=== PATIENT | female | born 1995 | race Caucasian/White ===

== ENCOUNTER → 2019-03-30 16:30 | Outpatient (CLI) | payer BC, SELFPAY ==
[2019-04-04 12:07] LABS: Chlamydia By Nucleic Acid AMP Negative (Negative)
[2019-04-04 13:43] LABS: Gonococcus By Nucleic Acid AMP Negative (Negative)
[2019-04-04 13:44] LABS: HPV Reflexed? NOT INDICATED
== END ==
PROVIDERS: PCP Obstetrics & Gynecology; Visit Provider Advanced Practice Midwife
DX: Z12.4 Encounter for screening for malignant neoplasm of cervix (principal); Z11.3 Encounter for screening for infections with a predominantly sexual mode of transmission; Z34.81 Encounter for supervision of other normal pregnancy, first trimester
CPT/HCPCS: 87491; 87591; 88175; G0145

== ENCOUNTER → 2019-04-04 15:46 | Outpatient (CLI) | payer BC, MEDICAID, SELFPAY ==
[2017-04-05 22:38] VITALS: BMI 38.5
[2019-04-04 16:59] LABS: Absolute Lymphocyte Count 1.52 X10^3/uL (0.83-4.51); Absolute Neutrophil Count 6.9 X10^3/uL (2.0-7.7); Basophil# 0.02 X10^3/uL; Basophil% 0.2 % (0-1); Eosinophil# 0.04 X10^3/uL; Eosinophils% 0.4 % (0-5); Hematocrit 41.3 % (37-47); Hemoglobin 14.2 g/dL (12.0-15.0); Lymphocyte # 1.52 X10^3/ul (4.0); Lymphocyte % 16.6 % (19-41); Mean Corp Hgb Conc 34.4 g/dL (32-36); Mean Corpuscular Hgb 32.5 pg (27.0-32.0); Mean Corpuscular Volume 94.5 fL (81-99); Mean Platelet Vol. 10.2 fl (6.2-12.0); Monocyte# 0.63 X10^3/uL; Monocyte% 6.9 % (0-10); NRBC Flagged by Analyzer 0 % (0-5); Neutrophil # 6.88 X10^3/uL (2.7-7.7); Neutrophil % 75.4 % (47-70); Platelet Count 206 K/mm3 (150-450); RBC Distribution Width CV 11.7 % (11.6-14.6); RBC Distribution Width SD 40.5 fl (35.1-43.9); Red Blood Count 4.37 M/mm3 (4.2-5.4); White Blood Count 9.1 K/mm3 (4.4-11.0)
[2019-04-04 17:08] LABS: Color, Urine Yellow (Yellow); Glucose, Dipstick Normal (Normal); Ketone-Dipstick Negative (Negative); Leukocyte Esterase-Dipstick Negative /ul (Negative); Nitrite-Dipstick Negative (Negative); Occult Blood-Urine Negative /ul (Negative); Protein-Dipstick Negative (Negative); Specific Gravity, Urine 1.025 (1.002-1.030); Urine Bilirubin Dipstick Negative (Negative); Urine Clarity Clear (Clear); Urine Urobilinogen Normal (Normal)
[2019-04-04 17:22] LABS: Amphetamine Urine VISTA NEGATIVE (<1000 ng/mL); Barbiturate Urine VISTA NEGATIVE (< 200 ng/mL); Benzodiazepine Urine VISTA NEGATIVE (< 200 ng/mL); Cocaine Urine VISTA NEGATIVE (< 300 ng/mL); Ecstacy Urine VISTA NEGATIVE (< 500 ng/mL); Methadone Urine VISTA NEGATIVE (< 300 ng/mL); PCP Urine VISTA NEGATIVE (< 25 ng/mL); THC Urine VISTA NEGATIVE (< 50 ng/mL); Vista UDS pH Range 5
[2019-04-04 17:29] LABS: Glucose Challenge Gest 1H 50g 158 mg/dL (70-140); Thyroid Stim Hormone (TSH) 1.39 uIU/mL (0.358-3.74)
[2019-04-05 10:54] LABS: HIV - WCH Non-Reactive (Nonreactive); Hepatitis B Surface Antigen Non-Reactive (Nonreactive); Hepatitis C Antibody Non-Reactive (Nonreactive); Rubella IgG 47.5 IU/mL
[2019-04-08 02:39] LABS: Prenatal RPR NONREACTIVE (NONREACTIVE)
== END ==
PROVIDERS: Visit Provider Obstetrics & Gynecology
DX: Z34.81 Encounter for supervision of other normal pregnancy, first trimester (principal)
CPT/HCPCS: 36415; 80307; 81002; 82950; 84443; 85025; 86703; 86762; 86803; 87340

== ENCOUNTER → 2019-04-07 09:52 | Outpatient (CLI) | payer BC, MEDICAID, SELFPAY ==
[2019-04-07 11:24] LABS: Glucose GTT-Gestation. Fasting 75 mg/dL (<105)
[2019-04-07 12:04] LABS: Glucose GTT-Gestational 1 Hr 145 mg/dL (<190)
[2019-04-07 13:13] LABS: Glucose GTT-Gestational 2 Hr 140 mg/dL (<165)
[2019-04-07 14:50] LABS: Glucose GTT-Gestational 3 Hr 74 L (<145)
== END ==
PROVIDERS: Referring Provider Obstetrics & Gynecology; Visit Provider Obstetrics & Gynecology
DX: O24.912 Unspecified diabetes mellitus in pregnancy, second trimester (principal); Z3A.00 Weeks of gestation of pregnancy not specified
CPT/HCPCS: 36415; 82951; 82952

== ENCOUNTER → 2019-08-24 16:18 | Outpatient (CLI) | payer BC, MEDICAID, SELFPAY ==
[2017-04-05 22:38] VITALS: BMI 38.5
[2019-08-24 17:42] LABS: Hematocrit 36.9 % (37-47); Mean Corp Hgb Conc 32.5 g/dL (32-36); Mean Corpuscular Hgb 30.7 pg (27.0-32.0); Mean Corpuscular Volume 94.4 fL (81-99); Mean Platelet Vol. 10.8 fl (6.2-12.0); Platelet Count 171 K/mm3 (150-450); RBC Distribution Width CV 12.5 % (11.6-14.6); RBC Distribution Width SD 43.4 fl (35.1-43.9); Red Blood Count 3.91 M/mm3 (4.2-5.4); White Blood Count 9.6 K/mm3 (4.4-11.0)
[2019-08-24 17:50] LABS: Glucose Challenge Gest 1H 50g 110 mg/dL (70-140)
== END ==
PROVIDERS: Visit Provider Advanced Practice Midwife
DX: Z34.83 Encounter for supervision of other normal pregnancy, third trimester (principal)
CPT/HCPCS: 36415; 82950; 85027

== ENCOUNTER → 2019-10-20 16:56 | Outpatient (CLI) | payer BC, MEDICAID, SELFPAY ==
[2017-04-05 22:38] VITALS: BMI 38.5
== END ==
PROVIDERS: Referring Provider Obstetrics & Gynecology; Visit Provider Obstetrics & Gynecology
DX: Z36.85 Encounter for antenatal screening for Streptococcus B (principal)
CPT/HCPCS: 87081

== ENCOUNTER 2019-11-08 06:57 | Inpatient (IN) | payer BC, MEDICAID, SELFPAY ==
[2017-04-05 22:38] VITALS: BMI 38.5
[2019-11-08] VITALS (21 sets, daily range): BP systolic 105–134; BP diastolic 55–77; PULSE 96–110; TEMP 36.4–37.1; O2SAT 87–99; BMI 41.1
[2019-11-08] MEDS: Lactated Ringers 1,000 ML 50 ML IV (07:43)
[2019-11-08 08:11] LABS: Absolute Lymphocyte Count 1.64 X10^3/uL (0.83-4.51); Basophil# 0.03 X10^3/uL; Basophil% 0.3 % (0-1); Eosinophil# 0.11 X10^3/uL; Eosinophils% 1.1 % (0-5); Hematocrit 36.1 % (37-47); Hemoglobin 11.7 g/dL (12.0-15.0); Lymphocyte # 1.64 X10^3/ul (4.0); Mean Corp Hgb Conc 32.4 g/dL (32-36); Mean Corpuscular Hgb 29.8 pg (27.0-32.0); Mean Corpuscular Volume 91.9 fL (81-99); Mean Platelet Vol. 10.6 fl (6.2-12.0); Monocyte# 0.89 X10^3/uL; Monocyte% 9.2 % (0-10); NRBC Flagged by Analyzer 0 % (0-5); Neutrophil # 6.95 X10^3/uL (2.7-7.7); Platelet Count 190 K/mm3 (150-450); RBC Distribution Width CV 13.3 % (11.6-14.6); RBC Distribution Width SD 44.8 fl (35.1-43.9); Red Blood Count 3.93 M/mm3 (4.2-5.4); White Blood Count 9.7 K/mm3 (4.4-11.0)
[2019-11-08] MEDS: miSOPROStol 25 MCG TABLET VAGINAL ×2 (08:30→12:48)
--- NOTE | 2019-11-08 14:56 | PCM.HP.BLA ---
History and Physical Date of Admission: 11/08/19 [facility] ANTEPARTUM RECORD - HISTORY AND PHYSICAL (11/08/2019) Name: DINAH BAKER History of This : This is a 24-year-old 2 para 1 patient who presents for induction. care has been uneventful. OB Physician: REHAN [place]'s Physician: Dr. Lori Sanabria ...................................................................... : 1995 Age: 24 Address: [address] [place] [address] Phone: H) [phone] Insurance Carrier: [employer] [facility] [id number] Emergency Contact: LAN GOLDAR [phone] ...................................................................... Final BLESSING: 11/12/19 By Ultrasound: 8 weeks 1 day PARITY: (G-Total Pregnancies P-Fullterm,Premature,Induced AB,Spont AB, Ectopics, Multiple,Living) BLESSING CONFIRMATION: By LMP: 01/31/19 Initial Exam: 11/07/19 By First Ultrasound Exam: 11/12/19 Final BLESSING: 11/12/19 OB PROBLEM LIST: 1 hour GTT = 158, NORMAL 3 hour GTT at 8 wks. ALLERGIC to AMOXICILLIN! Declines MSAFP and CF testing EPDS = 0 Possible shellfish allergy, throat sometimes itches when she eats shrimp Request NO CANCINO BULB for IOL Undecided about feeding method, may take office class ALLERGIES: Amoxicillin Hives and/or rash Shellfish Derived Itching, non-specific MEDICATIONS: 28 mg-800 mcg tablet 1 PO QD Zofran 4 mg tablet 1 q 8 hours prn nausea SOCIAL HISTORY: Smoking - Never Alcohol Use - denies drinking Diet - moderate, balanced diet Lifestyle - low stress lifestyle and Exercise - minimal Employer - [employer] Job Description - Illicit Drug Use - denies use of street drugs Sexual Activity - Residence - lives with Place of - [place]. [place] Spouse-Sig Other Name - Lan Spouse-Sig Other Occupation - [employer] Spouse-Sig Other Phone No - [phone] Children Name(s) - Mica, and two step children - Shabbir Easton PRIOR DELIVERY HISTORY DEL DATE GEST LAB WT LB WT OZ TYPE ANES LABOR TX 19 Apr 05 38 36 6 10 Vag Epidural No ANTEPARTUM FLOW CHART VISIT GE RTC FU F F OR U U DATE WK MD WKS HT PN HR M SS BP ED WT OR GL D EF ST __ ____ ___ __ __ ___ __ __ __ ___ __ __ __ ___ __ 17 Oct 38 SHM 1 37 V + + 126/68 0 222 - - 1 25 -4 10 Oct 37 SHM 1 37 + + 128/80 1+ 223 - - 02 Apr 36 CH 1 37 V + + 116/78 sl 220 tr - 1 25 hi 05 Sep 32 CH 2 32 V + + 120/80 tr 217 tr - 19 Aug 30 CH 2 30 V + + 110/80 sl 219 - - 05 Aug 28 KW 2 28 + + 118/74 217 tr tr 08 Aug 12 KW 4 24 + + 110/70 sl 213 - - 10 Jul 08 CH 4 20 V on + 98/60 0 210 11 May 16 CH 4 + O 92/60 0 210 - - 15 Apr 30 KW 4 + O 84/60 0 207 - - 16 Mar 27 4 on 122/78 209 - - ANTEPARTUM NOTE(S): Nov 04 2019: doing well, interested in induction Oct 28 2019: Oct 20 2019: GBS Today,LARC form signed,Good FM Sep 22 2019: feeling well. Sep 07 2019: feeling well. Aug 24 2019: Jul 27 2019: feeling well. Glucola given. Jun 28 2019: May 30 2019: feeling well. May 03 2019: feeling well. Still having nausea. Apr 04 2019: Daily N/V. COMPREHENSIVE ANTEPARTUM NOTE(S): Nov 04 2019: MODERATE AND MIDPOSITION. Discussed r/b/i elective IOL including tachysystole, heart rate changes, possibly requiring . Will schedule. Pt understands PRIORITY 4. Nov 04 2019: Induction is scheduled for Thursday night at 7 pm. Copy of induction paperwork faxed. LMT Oct 28 2019: Dinah reporting good FM. Occas ctx or Galindo Guajardo the past 2 weeks, not uncomfortable. No leaking fluid. No spotting. GBS negative on 10/20/19. Reporting some tingling in Right arm lasting most of the day, notes also when wakes up from sleeping. During the day, sometimes feels like she has been punched in the arm. Denies any neck issues that may contribute to this. Denies chest pain. Discussed increase in fluid when and adjusting body positions when in bed, increasing water intake -- discuss further w/Dr. Beth Reynoso. kbm Oct 28 2019: b/l UE strength 11/21. 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 Pt to monitor. GBS negative reviewed. Labor, FM precautions. Oct 25 2019: H taken to OB. tkg Oct 20 2019: GBS swab collected today. Reports +FM and feeling well. FHR is 148. Does want SVE today 08/13/high soft midposition. Discussed if not able to get cuff will need to come in weekly still for appointments. Wants to come in weekly so she doesn't have to buy a cuff. Does NOT want a cancino bulb again for IOL. Does want induced at 39 weeks though. Will do SVE and determine IOL type. Tried calling in to the office last night, but was pushing option 2 for the nurse instead of listening throughout to get the [employer] service call. Reminded on how to call in and definitely to call if needing us. Was having galindo guajardo and took a warm bath and went to bed, then they stopped. Needs to sign tubal consent at next visit. To call with s/s of labor including regular UC Q5m, ROM, bleeding or even decreased FM. To return in 1 week. .. - Oct 06 2019: Tele appt today due to Covid-19 precautions. Reports feeling well with lots of FM+. Understands Covid-19 precautions and advised when to call. Will come into the office in 2 weeks to leave GBS swab and have a nurse visit. Will sign BTL federal consent then. We are offering video/phone messages for all women in the last month if she has a BP cuff at home. If unable to get BP at home we are recommending weekly appts in the final month for surveillance. Will need to come in. Feels a lot more lower pressure, mild swelling at night in bilateral legs, more trouble feeling breathing at the end etc etc all the normal end things. Had questions on circumcision, answered all questions, but advised to talk to weaving inspector about pain control options that they offer if any. To call with decreased FM, ROM, bleeding or regular UC. Reviewed office still being open and nurse triage line with provider oncology admin 09/02. 12 minutes spent on the phone. - Sep 22 2019: FM+. FHR 138. BTL consent to be signed at next visit. Understands has to be 6wk PP to get scheduled. Nausea medication refill sent in. Has no other questions or concerns. To return in 2 weeks for routine PNV. - Sep 07 2019: (f,m*) FHR 150. FM++. Feeling well with no concerns. Reviewed 3rd trimester labs. Will return in 2 weeks for routine PNV. - Aug 24 2019: 1 Hr Glucose, CBC drawn this visit. Good FM. Aug 24 2019: Feeling well; reflux improving with small portions and lots of water'; reports active FM; denies UCs, VB, LOF; 1-hour Glucola and bloodwork drawn today; discussed warning signs, s/s PTL, safety concerns; RTO 2 weeks for PNV - KVW Jul 27 2019: Feeling well; reports active FM; denies UCs, VB, LOF; does report some reflux, discussed methods and OTC meds to relieve; Glucola given w/instructions today, to be drawn at next visit; discussed warning signs, s/s PTL; RTO 4 weeks for PNV w/CH - KVW Jun 28 2019: Reporting increased pelvic pressure. Had comprehensive US first which shows male at 48.2% tile with posterior placenta, vertex position, 4.6cm long cervix, no signs of abruption. Discussed findings with patient and . They are very excited to be having a boy. No bleeding, loss of fluids or lower back pain. Wants BTL, will sign federal consent next visit. Understands not until 6 week PP. Buying belly band to try to relieve lower belly pressure. Tylenol, warm baths and heating pad in short increments. No s/s of UTI. Will call if worsening and comfort measures not helping. To return in 4 weeks for routine PNV. - May 30 2019: (f,*) Nausea has now subsided, has not needed Zofran for over a week. Not feeling FM yet. +FHR 148. Fundus half way to umbilicus. Would like a BTL and will see Dr. Quevedo for discussion at end of second trimester. Has custody of husbands other two children and wanted BTL after first daughter. She is absolutely sure this is what she wants and understands permanence. present and talked about vasectomy, but choosing BTL for permanent control. Will return in 4 weeks for PNV with KW and Anatomy US. - May 03 2019: (f,*) 12w3d reports nausea is getting better with Zofran. Was on 8mg, then switched to 4mg. She reports taken two tabs to equal the 8mg. Let her know this was fine and educated that should be subsiding soon. Continue taking 8mg. +FHR 131. BP lower side today, but states hasn't ate much or drank much. Educated on importance of keeping hydrated. No sequelae, but instructed to call if dizzy or lightheaded. States likes midwifery care and would like to continue with keno writer/runner and Michelle. F/u in 4 weeks with KW. - Apr 04 2019: Dinah is here for her NOB visit at 8 w 2 d, she is a with an BLESSING of 11/12/2019. , Lan, and their two year old daughter are with Dinah today. Lan also has a girl (8 years old), and a son (7 years old) from a previous relationship; Dinah and Lan have custody of his older children. Dinah had a with her daughter, she states that she ran a fever, and her labor was induced. Past history updated. Delivery at [facility] with an epidural is planned. Dinah is unsure about feeding method at this time, she may want to try to breastfeed again; information about office class provided should she decide to breastfeed. Office practice patterns reviewed, including labs that will be collected today; she is aware that she will have a 1 hr GTT today and why. She tolerated the Glucola well. Emergencies/danger signs to report, round ligament pain, reporting suspected UTI, and common OTC medications approved/not approved for use during reviewed. Dinah is a nonsmoker, and denies use of drugs or ETOH. She takes an OTC vitamin and generally tolerates this well, states I sometimes forget to take it. Genetic Screening form completed, no significant history noted. MSAFP and CF testing declined, consent signed as such. Dinah reports daily N/V, she has not tried Unisom at bedtime, or Vitamin B6 50 mg twice a day, but states that she plans to do so. She also tries to eat small frequent snacks, and will work on adding some protein throughout the day, and drinks mostly water and will continue to keep doing this. Reviewed water and dietary needs during , including caloric needs, limiting weight gain to 10-15 lbs, limiting empty calories, and limiting caffeine to one serving a day. Printed guide for food safety provided with review. Physical activity, such as walking, 30 minutes 5 x/week encouraged. Lifting restrictions discussed. Dinah states that she understands all information provided during NOB visit, and has no questions following same. AW New Apr 04 2019: Feeling well with exception of consistent nausea and daily vomiting; has not tried B6 and Unisom yet, but does state she experienced this for most of her previous with which she took Zofran and Phenergen; she did not like how the Phenergen made her feel. She denies cramping, VB, LOF; dating US and NOB visit today with 1 hour glucola for BMI>38; discussed diet changes to help with nausea, warning signs; rx for Zofran given; RTO 4 weeks for PNV - KVW Mar 30 2019: Dinah is here for missed menses appt. She relates LMP of 715, +UPT today in office, approx EDC 11/07/19. She relates nausea and fatigue and would like Rx. Recommendations for . Increased po fluids as tolerated, 30 minutes of exercise 5x/wk. Educational materials are provided and reviewed. Pap and cultures will be done today. LMT REVIEW OF SYSTEMS: GENERAL - Denies fever, or chills SKIN - Denies rash, new skin lesions, or change in moles EYES - Denies blurred vision, or change in visual acuity EARS - Denies ear pain, or difficulty hearing NOSE - Denies nasal congestion, discharge, or bleeding MOUTH - Denies sore throat, or difficulty swallowing NECK - Denies pain or swelling RESPIRATORY - Denies shortness of breath, cough, wheezing CARDIOVASCULAR - Denies palpitations, chest pain, orthopnea, PND, peripheral edema, syncope or claudication GASTROINTESTINAL - Denies nausea, vomiting, diarrhea, constipation, Denies abdominal pain, melena and or bright red blood GENITOURINARY - Denies dysuria, frequency of urination, urgency, or hesitancy MUSCULOSKELETAL - Denies joint or muscle pain, or back pain NEUROLOGICAL - Denies localized numbness, weakness, or tingling PSYCHIATRIC - Denies depression, anxiety, substance abuse or suicide attempts ENDOCRINE - Denies heat or cold intolerance, weight loss or gain, increasing thirst HEMATO-IMMUNOLOGIC - Denies easy bruising, bleeding, oral ulcerations or recurrent infections GENETICS SCREENING: Age 35+ years: No Thalassemia: No Neural Tube Defect: No Down Syndrome: No JANY-SACHS: No Sickle Cell Disease: No Hemophilia: No Musc. Dystrophy: No Cystic Fibrosis: No-declines screening Luis Fernando Chorea: No Mental Retardation: No Fragile X: No Other genetic: No Other defects: No SABs/still births: No Drugs since LMP: No INFECTION HISTORY: High risk AIDS: No High risk Hepatitis: No Exposed to TB: No Exposed to Herpes: No Rash/viral illness since LMP: No History of STD: No MENSTRUAL HISTORY: *Menses Amount/Duration: 4 daysMenses Regularity: IrregularFrequency: monthly* PAST SUMMARY: PARITY: 1. Total Pregnancies............ 2 2. Full Term Pregnancies........ 1 3. Premature.................... 0 4. Abortions - Induced.......... 0 5. Abortions - Spontaneous...... 0 6. Ectopics..................... 0 7. Multiple Births.............. 0 8. Living Children.............. 1 PAST #1: Date of :.................. 04/07/17 Gestation Weeks:................ 38 Length of labor(hours):......... 36 Sex:............................ F Weight-lbs:............... 6 Weight-oz:................ 10 Type of Delivery:............... Vag Type of Anesthesia:............. Epidural Place of Delivery:.............. [facility] Treatment of Labor?:.... No Comment: IOL, FEVER PHYSICAL EXAMINATION General Appearence: 24 yo female in no acute distress Vital Signs: AF, VSS Heart: RRR without rubs or gallops Lungs: CTA x 2 Breasts: deferred Abdomen: gravid Pelvis: Cervix: 1 cm / 25% effaced Presentation: cephalic Station: -4 Fetus: Size: AGA Movement: present Heart: present Labs for : DINAH BAKER since 02/15/2019 ORDER DATEIN DESCRIPTION VALUE UNITS RANGE A+ COMMENT CULTURE, GROUP B STREPTOCOCCUS 10/20/19 NOTE Original Ordering Provider: VALDEZ Zapata GABRIEL Culture Group B Beta Streptococcus is not isolated. Reviewed by REHAN GLUCOSE CHALLENGE GEST 1H 50G 08/24/19 NOTE Original Ordering Provider: VALDEZ Cruz GLU GEST 50G 1H 110 mg/dL 70-140 Reviewed by CLIFF CBC-COMPLETE BLOOD CNT NO DIFF 08/24/19 NOTE Original Ordering Provider: VALDEZ Cruz WBC 9.6 K/mm3 4.4-11.0 RBC 3.91 M/mm3 4.2-5.4 L HGB 12.0 g/dL 12.0-15.0 HCT 36.9 % 37-47 L MCV 94.4 fL 81-99 MCH 30.7 pg 27.0-32.0 MCHC 32.5 g/dL 32-36 RDW CV 12.5 % 11.6-14.6 RDW SD 43.4 fl 35.1-43.9 PLT 171 K/mm3 150-450 MPV 10.8 fl 6.2-12.0 Reviewed by CLIFF GESTATIONAL GTT 3HR 100G 04/07/19 NOTE Original Ordering Provider: Raad Euceda GLU GTT-FASTING 75 mg/dL <105 GLUCOSE TOLERANCE TEST FOR Reference Interval GESTATIONAL DIABETES Fasting <105 mg/dL 1 hour <190 mg/dl 2 hour <165 mg/dl 3 hour <145 mg/dl GLU GTT- 1HR 145 mg/dL <190 GLU GTT- 2HR 140 mg/dL <165 GLU GTT- 3HR 74 L <145 Reviewed by JAYESH Reviewed by RAAD RPR 04/04/19 NOTE Original Ordering Provider: Raad Ecueda RPR NONREACTIVE NONREACTIVE Reviewed by JAYESH HEPATITIS C ANTIBODY 04/04/19 NOTE Original Ordering Provider: Raad Euceda HEPATITIS C AB Non-Reactive Nonreactive Non Reactive: < 0.8 Equivocal: >/= 0.8 to < 1.0 Reactive: >/= 1.0 The CDC recommends that a reactive/equivocal HCV antibody result be followed up by the HCV Nucleic Acid Amplification test (063860) Reviewed by RAAD HEPATITIS B SURFACE ANTIGEN 04/04/19 NOTE Original Ordering Provider: Raad Euceda HEPB SURFACE AG Non-Reactive Nonreactive Reviewed by RAAD HIV - [facility] 04/04/19 NOTE Original Ordering Provider: Raad Euceda HIV - [facility] Non-Reactive Nonreactive Reviewed by RAAD RUBELLA IGG 04/04/19 NOTE Original Ordering Provider: Raad Euceda RUBELLA IGG 47.5 IU/mL Antibody results Interpretation of Immune Status < 5 IU/ml Presumed Non-immune 5 - < 10 IU/ml Equivocal > or = 10 IU/ml Presumed Immune Reviewed by RAAD T AND S-NO CHARGE W/PNP 04/04/19 Reason for Type AND Screen/Red Cells: Surgery? [facility]~[address] [place], [address]~ BLOOD TYPE GEL O POSITIVE N AB SCREEN GEL NEGATIVE N Reviewed by RAAD URINALYSIS, ROUTINE (DIPSTICK) 04/04/19 NOTE Original Ordering Provider: Summer Campos-Edgardo COLOR Yellow Yellow CLARITY Clear Clear GLUCOSE, UR Normal mg/dl Normal BILIRUBIN URINE Negative mg/dL Negative KETONE UR Negative mg/dl Negative SP.GR. DIPSTX 1.025 1.002-1.030 PH UR 5.0 5.0 - 8.0 PROT DIPSTX Negative mg/dl Negative UROBILI Normal mg/dl Normal NITRITE UR Negative Negative OCCULT BLOOD-UR Negative /ul Negative LEUK ESTERASE Negative /ul Negative Reviewed by RAAD THYROID STIM HORMONE (TSH) 04/04/19 NOTE Original Ordering Provider: Raad Euceda TSH 1.39 uIU/mL 0.358-3.74 Reviewed by RAAD GLUCOSE CHALLENGE GEST 1H 50G 04/04/19 NOTE Original Ordering Provider: Raad Euceda GLU GEST 50G 1H 158 mg/dL 70-140 H Reviewed by RAAD URINE DRUG SCREEN (VISTA) 04/04/19 NOTE Original Ordering Provider: Raad Euceda TO BE CONFIRMED CONFIRMATORY TESTING FOR ALL POSITIVE URINE DRUG SCREEN RESULTS WILL ONLY BE SENT OUT UPON PHYSICIAN ORDER. VISTA Urine Drug Screen methods provide only preliminary analytical test results. A more specific alternate chemical method must be used in order to obtain a confirmed analytical result. Gas chromatography/mass spectrometery (GC/MS) is the preferred confirmatory method. Clinical consideration and professional judgement should be applied to any drug of abuse test result, particularly when preliminary positive results are used. URINE TCA TESTING MUST BE ORDERED SEPARATELY. USE TEST MNEMONIC: [facility]IST[facility] UDS PH 5 AMPHETAMINES NEGATIVE <1000 ng/mL BARBITIURATES NEGATIVE < 200 ng/mL BENZODIAZIPINE NEGATIVE < 200 ng/mL COCAINE NEGATIVE < 300 ng/mL ECSTACY NEGATIVE < 500 ng/mL METHADONE NEGATIVE < 300 ng/mL OPIATES NEGATIVE < 300 ng/mL PCP NEGATIVE < 25 ng/mL THC NEGATIVE < 50 ng/mL Reviewed by RAAD CBC W/DIFF, AUTOMATED 04/04/19 NOTE Original Ordering Provider: Raad Euceda WBC 9.1 K/mm3 4.4-11.0 RBC 4.37 M/mm3 4.2-5.4 HGB 14.2 g/dL 12.0-15.0 HCT 41.3 % 37-47 MCV 94.5 fL 81-99 MCH 32.5 pg 27.0-32.0 H MCHC 34.4 g/dL 32-36 RDW CV 11.7 % 11.6-14.6 RDW SD 40.5 fl 35.1-43.9 PLT 206 K/mm3 150-450 MPV 10.2 fl 6.2-12.0 NEUT% 75.4 % 47-70 H LY% 16.6 % 19-41 L MONO% 6.9 % 0-10 EO% 0.4 % 0-5 BASO% 0.2 % 0-1 IM GRAN % 0.500 % 0.0-0.9 IG% - Immature Granulocytes (promyelocytes, myelocytes and metamyelocytes) > 1% indicates that a LEFT SHIFT is Present. ABSOLUTE NEUT 6.9 X10 3/uL 2.0-7.7 ABSOLUTE LYMPH 1.52 X10 3/uL 0.83-4.51 NRBC, FLAGGED 0 % 0-5 Reviewed by SUMMER PAP Smear 03/30/19 PAP Test Scanned Normal Reviewed by SUMMER Impression /Plan: 39+ week intrauterine for elective induction. Preparations in progress for delivery. Essential Procedure Criteria Procedure Essential: Yes Criteria Note: On 10/04/2019 the [facility] ([facility]) Public Order signed by [facility] Director Fabiola Rodríguez M.D., regarding the Management of Non-Essential Surgeries and Procedures for the purpose of preserving Personal Protective Equipment (PPE) and critical hospital capacity and resources within [place] went into effect as of 10/05/2019 at 5:00PM. According to the [facility] Public Order: This action will remain in full force and effect until the State of Emergency declared by the Governor no longer exists or the Director of the [facility] rescinds or modifies this Order.. This [facility] order stated all non-essential or elective surgeries and procedures that utilize PPE should be delayed unless there is undue risk to the current or future health of a patient. After reviewing the aforementioned [facility] Public Order and the patients clinical case, I have determined that the scheduled procedure meets the criteria to go forward. Risk to Patient if Procedure Delayed: Threat to patient's life if surgery or procedure is not performed - Patient is .
[2019-11-08] MEDS: Oxytocin 30 units/NS 500 ml 30 UNITS/500 ML IV.SOLN IV (17:36)
[2019-11-08] MEDS: Lactated Ringers 500 ML 999 ML IV ×2 (18:25→23:18)
[2019-11-08] MEDS: fentaNYL 100 MCG/2 ML Ampul IV (22:24)
[2019-11-08] MEDS: Ondansetron 4 MG/2 ML Vial IV (22:25)
[2019-11-09] VITALS (103 sets, daily range): BP systolic 84–142; BP diastolic 43–88; PULSE 92–156; RESP 16–18; TEMP 36.2–37.4; O2SAT 83–100
[2019-11-09] MEDS: fentaNYL-bupivacaine (epidural) 100 ML BAG EPIDURAL (00:51)
[2019-11-09] MEDS: fentaNYL 100 MCG/2 ML Ampul IV (01:15)
[2019-11-09] MEDS: Lactated Ringers 1,000 ML 200 ML IV (01:58)
[2019-11-09] MEDS: Lactated Ringers 500 ML 999 ML IV ×2 (02:40→04:14)
[2019-11-09] MEDS: 0.9% Saline Lock 10 ML Syringe IV ×2 (02:43→02:44)
[2019-11-09] MEDS: Oxytocin 30 units/NS 500 ml 30 UNITS/500 ML IV.SOLN 334 UNITS IV (07:12)
--- NOTE | 2019-11-09 07:23 | PCM.OPRPT ---
Vaginal Delivery Maternal Presentation: Elective Induction Amniotic Membrane Rupture Type: Spontaneous Amniotic Fluid Description: Clear Final BLESSING: 11/12/19 Final BLESSING Source: US <20 weeks Gestational age: 39 Weeks and 4 Days Date of Procedure: 11/09/19 Pre-Operative Diagnosis: IUP Post-Operative Diagnosis: IUP Surgery/ Procedure Performed: Spontaneous Vaginal Delivery Type of Anesthesia: Epidural Description of Procedure: Spontaneous vaginal delivery of a viable male with Apgars of 9/9 from an occiput anterior presentation with clear amniotic fluid and normal three-vessel placenta. Cord around the neck x1 tight. No episiotomy or laceration. Sponges okay. Delivery physician: Carloz Godoy MD. Presentation: Vertex Placental Delivery Description: Spontaneous Placenta Disposition: [facility] Cord Vessel Description: 3 Vessels Cord Gases drawn per routine: ABG Cord Entanglement: Around neck x 1, tight Estimated Blood Loss: 250 cc A gender: Male (1 minute): 9 (5 minute): 9 Episiotomy Description: None Laceration: None Medications given after delivery: IV Pitocin Complications: None
--- NOTE | 2019-11-09 07:27 | DCINST_ITS ---
<Carloz Godoy - Last Filed: 11/09/19 07:27> Discharge Diet: No Restrictions Discharge Activity: May Shower, May Take a Tub Bath May resume sexual activity in: 4-6 weeks Additional Activity Instructions:: Nothing in the vagina for 4-6 weeks. You may return to work/school in 6 weeks. Call your doctor if you observe: Inability to urinate, Inability to have a bowel movement, Using more than one pad per hour Additional Instructions: If you experience any of the following, contact your healthcare provider. * Bleeding that soaks a pad every hour for 2 hours * Fever 100.4 or higher * Unrelieved incision or abdominal pain * Swelling, redness, discharge or bleeding from your incision or episiotomy site * Your incision begins to separate * Problems urinating (including inability to urinate or burning while urinating). * Visual changes * Severe headache * Flu-like symptoms * Pain or redness in one of both of your breasts * Pain, warmth, tenderness or swelling in your legs, especially the calf area * Frequent nausea and vomiting * Symptoms of depression or anxiety If you experience any of the following, call 911 or go to the nearest Emergency Room. * Chest pain * Problems breathing * Seizure activity * Partial or complete paralysis of a body part, slurred speech, weakness or drooping of the face, or a sudden inability to walk or hold your balance Allergies/Adverse Reactions: Allergies amoxicillin Allergy (Verified 04/05/17 22:11) Hives Medications to take at Discharge Vits [Prenatabs FA ] 1 tablet PO DAILY 10/20/16 Acetaminophen [Tylenol Extra Strength] 1,000 mg PO Q6H PRN PRN 04/05/17 Diphenhydramine HCl [Benadryl Allergy] 25 mg PO PRN PRN 04/05/17 Ibuprofen 800 mg PO TID PRN #30 tablet 04/09/17 Senna/Docusate Sodium [Senokot-S] 1 - 2 tablet PO DAILY PRN PRN #60 tablet 04/09/17 Please Follow Up With: Carloz Godoy MD - [phone] When: Call to make an appointment with your doctor in 6 weeks. Primary Care Physician: Care Physician,No Primary [Primary Care Provider] - Test Results: Test results from this visit will be discussed in further detail at your follow- up appointment, if applicable. <Jaclyn Zapata - Last Filed: 11/10/19 08:53> Additional Instructions: If you experience any of the following, contact your healthcare provider. * Bleeding that soaks a pad every hour for 2 hours * Fever 100.4 or higher * Unrelieved incision or abdominal pain * Swelling, redness, discharge or bleeding from your incision or episiotomy site * Your incision begins to separate * Problems urinating (including inability to urinate or burning while urinating). * Visual changes * Severe headache * Flu-like symptoms * Pain or redness in one of both of your breasts * Pain, warmth, tenderness or swelling in your legs, especially the calf area * Frequent nausea and vomiting * Symptoms of depression or anxiety If you experience any of the following, call 911 or go to the nearest Emergency Room. * Chest pain * Problems breathing * Seizure activity * Partial or complete paralysis of a body part, slurred speech, weakness or drooping of the face, or a sudden inability to walk or hold your balance Please Follow Up With: Jaclyn Zapata CNM When: Call to make a telehealth appointment in 2 weeks and a visit in 6 weeks Test Results: Test results from this visit will be discussed in further detail at your follow- up appointment, if applicable.
[2019-11-09] MEDS: Acetaminophen 500 MG Tablet 1000 MG PO (08:17)
[2019-11-09] MEDS: Ibuprofen 600 MG Tablet PO ×2 (16:39→23:42)
[2019-11-09] MEDS: Senna/Docusate Sodium 1 Tablet PO (23:47)
[2019-11-10 04:20] VITALS: BP 89/52; PULSE 90
[2019-11-10 04:21] VITALS: BP 90/52; PULSE 90; RESP 18; TEMP 36.4
[2019-11-10] MEDS: Ibuprofen 600 MG Tablet PO ×2 (06:34→12:16)
--- NOTE | 2019-11-10 08:53 | PCM.PN.OB ---
Subjective: Feeling well. Denies pain, cramping, and heavy bleeding. Reports passing flatus. Objective: VSS. Fundus firm, midline, u/1. Lochia rubra moderate. - Physical Exam Vitals/I&O's: Vital Signs Temp Pulse Resp BP Pulse Ox 97.5 F L 90 18 90/52 L 98 11/10/19 04:21 11/10/19 04:21 11/10/19 04:21 11/10/19 04:21 11/09/19 06:30 Oxygen Delivery Method Room Air Weight: 102.172 kg Body Mass Index (BMI) 41.1 Intake and Output for Last 24 Hours 11/08/19 11/09/19 11/10/19 23:59 23:59 23:59 Intake Total 2587.04 / 2587.04 2618.9 / 2618.9 Output Total 200 / 200 600 / 600 Balance 2387.04 / 2387.04 2018.9 / 2018.9 General: Alert, Oriented x3, Cooperative HEENT: Atraumatic, PERRLA, EOMI, Normocephalic Neck: Supple, No JVD, Negative Carotid Bruits Lungs: Clear to auscultation, Normal air movement Cardiovascular: Regular rate, No murmurs Abdomen: Bowel Sounds Present, Soft, Non Tender, Passing Flatus, - - Fundus u/1 Extremities: No edema, Capillary Refill Less than 3 Seconds Skin: No rashes, No breakdown Musculoskeletal: No Tenderness to Palpation of Joints or Extremities Neurological: Cranial nerves II-XII grossly intact Psych/Mental Status: Normal Affect, Appropriate Current Medications Acetaminophen (Tylenol) 1,000 mg PO Q8H PRN PRN PRN Reason: Pain Score 1-3/10 Last Admin: 11/09/19 08:17 Dose: 1,000 mg Documented by: Bisacodyl (Dulcolax) 10 mg RECTAL UD PRN PRN Reason: If no BM Dibucaine (Dibucaine) 1 applic TOPICAL TID PRN PRN; Protocol PRN Reason: Discomfort Diphenhydramine HCl (Benadryl) 25 mg PO TID PRN PRN PRN Reason: ITCHING Hydrocortisone (Hytone) 1 applic TOPICAL TID PRN PRN; Protocol PRN Reason: Discomfort Ibuprofen (Motrin) 600 mg PO Q6H PRN PRN PRN Reason: Pain Score 1-3/10 Last Admin: 11/10/19 06:34 Dose: 600 mg Documented by: Methylergonovine Maleate (Methergine) 0.2 mg IM X1 PRN PRN Reason: Excess bleeding/uterine atony Ondansetron HCl (Zofran) 4 mg IV Q4H PRN PRN PRN Reason: Nausea Oxycodone HCl (Oxyir) 5 - 10 mg PO Q4H PRN PRN PRN Reason: Pain Score 4-10/10 Senna/Docusate Sodium (Senokot-S, Yesica-Colace) 1 - 2 tablet PO DAILY PRN PRN PRN Reason: Constipation Last Admin: 11/09/19 23:47 Dose: 1 tablet Documented by: Simethicone (Mylicon) 80 mg PO PCHS PRN PRN Reason: Indigestion/Stomach pain Sodium Chloride () 5 - 15 ml IV UD PRN PRN Reason: SALINE FLUSH Zolpidem Tartrate (Ambien (Generic)) 5 mg PO QHS PRN PRN PRN Reason: Insomnia Medical Necessity - Tobacco Use Smoking Status: Never smoker Assessment/Plan All Active Problems Maternal fever during labor, antepartum (Acute) 37 weeks gestation of (Acute) A/P: Post vaginal delivery, day #1 Normal involution and course Dyad stable Ready to discharge today Educated on s/s of PPD and understands when to call Follow up for telehealth appt in 2 weeks and routine PP visit in 6 weeks Home today
[2019-11-10 09:14] VITALS: BP 106/60; PULSE 100
[2019-11-10 09:15] VITALS: BP 106/60; PULSE 100; RESP 18; TEMP 36.7; O2SAT 99
[2019-11-10 12:48] VITALS: RESP 18
== END 2019-11-10 12:40 | disposition home or self-care (01) | DRG 807 ==
PROVIDERS: Admitting Provider Obstetrics & Gynecology; Visit Provider Obstetrics & Gynecology
DX: O99.214 Obesity complicating childbirth (principal); E66.01 Morbid (severe) obesity due to excess calories; O69.1XX0 Labor and delivery complicated by cord around neck, with compression, not applicable or unspecified; Z88.0 Allergy status to penicillin; Z3A.39 39 weeks gestation of pregnancy; Z37.0 Single live birth
CPT/HCPCS: 59025; 59050; 85025; 86850; 86900; 86901; 99218; J7120; A4216; G0378; J2405

== ENCOUNTER 2019-12-28 05:58 | Day surgery (SDC) | payer BC, MEDICAID, SELFPAY ==
[2019-11-08 07:08] VITALS: BMI 41.1
[2019-12-26 16:45] LABS: International Normalized Ratio 1.1; Prothrombin Time (Protime)PT. 13.3 SECONDS (11.7-14.9)
[2019-12-26 16:46] LABS: Partial Thromboplast Time 33.4 Seconds (24.1-36.2)
[2019-12-26 16:54] LABS: Hematocrit 45.1 % (37-47); Internal QC Validated? YES +Cl - CLEAR BKGD; Mean Corpuscular Hgb 29.3 pg (27.0-32.0); Mean Corpuscular Volume 94.4 fL (81-99); Mean Platelet Vol. 11.2 fl (6.2-12.0); Platelet Count 242 K/mm3 (150-450); Pregnancy, Serum, hCG Quali. NEGATIVE Negative; RBC Distribution Width CV 13.8 % (11.6-14.6); RBC Distribution Width SD 47.8 fl (35.1-43.9); Red Blood Count 4.78 M/mm3 (4.2-5.4); White Blood Count 6.9 K/mm3 (4.4-11.0)
--- NOTE | 2019-12-27 22:22 | HP.PCM_ITS ---
History and Physical Date of Admission: 12/28/19 Surgical History and Physical Dinah Arauz, a 24 year old female 2 0 0 0 2, presents for L/S Bilateral Salpingectomy on December 28, 2019 at 7:30. -- Desires Permanent Sterilization -- She has considered this form of sterilization for quite some time. MEDICATIONS HISTORY: ALLERGIES: Amoxicillin, Hives and/or rash, Shellfish Derived, Itching, non- specific, Shellfish Derived and Hives and/or rash Infections - Chicken pox vaccine Illnesses - none Accidents - L hip injury - fell from horse, 2011 and sees chiropractor Hospitalizations - see surgery and Childbirth Review of Systems: GENERAL - Denies fever, or chills SKIN - Denies skin changes EYES - wears glasses EARS - Denies difficulty hearing NOSE - Denies nasal congestion or bleeding MOUTH - Denies sore throat or difficulty swallowing NECK - Denies pain or swelling RESPIRATORY - Denies shortness of breath or wheezing CARDIOVASCULAR - Denies palpitations or chest pain GASTROINTESTINAL - Denies nausea, vomiting, diarrhea, constipation GENITOURINARY - Denies dysuria, frequency of urination, incontinence of urine MUSCULOSKELETAL - Denies joint or muscle pain NEUROLOGICAL - Denies localized numbness or weakness PSYCHIATRIC - Denies depression or anxiety ENDOCRINE - Denies heat or cold intolerance, weight loss or gain HEMATO-IMMUNOLOGIC - Denies excessive bleeding with cuts SOCIAL HISTORY: Alcohol Use - denies drinking Smoking - Never Diet - moderate, balanced diet Lifestyle - low stress lifestyle and Exercise - minimal Seat Belt Use - most of the time Employer - [employer] Illicit Drug Use - denies use of street drugs Sexual Activity - Residence - lives with Place of - [facility] Spouse-Sig Other Name - Lan Spouse-Sig Other Occupation - [employer] Spouse-Sig Other Phone No - [phone] Children Name(s) - Mica, and two step children - Shabbir [place] Control - Lap BS scheduled 12/28/19 FAMILY HISTORY: nc MENSTRUAL HISTORY: LMP Known?- 11/09/19Amount/Duration - 4 days, Regularity - Irregular, Frequency - monthly days, LMP - 01/31/19 PAST PREGNANCIES: Total Pregnancies - 2; Full Term Pregnancies - 2; Premature - 0; Abortions, Induced - 0; Abortions, Spontaneous - 0; Ectopics - 0; Multiple Births - 0; Living Children - 2 SURGICAL HISTORY: 1. Rt ankle surgery 2013 PHYSICAL EXAM BP- 126/74 Sitting, R Forearm Temp- 98.1 Taken Orally Weight- 195.28168 lbs Height- 62 inch BMI:35.89 CONSTITUTIONAL - NAD, well nourished, and well developed SKIN - No rash, lesions, or ulcers HEENT - Normocephalic, PERRLA, EOMI NECK - No nodes, no nuchal rigidity and thyroid normal size and texture LUNGS - CTA x2 without wheezes, crackles or rales CARDIAC - Regular rate and rhythm without rubs, murmurs, or gallops BREAST - No dominant masses, no tenderness, no axillary adenopathy, no nipple discharge, no skin changes ABDOMEN - Without hepatosplenomegaly, distention, masses, rebound, or guarding; normal bowel sounds; no hernias EXTREMITIES - No edema or calf tenderness NEUROLOGICAL - normal gait, normal balance, normal motor PSYCHIATRIC - A and O to time, place, person, mood and affect PAP SMEAR - done and GC and Chlamydia done External Genital Vagina - non-tender without lesions Urethra/Urethral Meatus - non-tender Bladder - non-tender Vagina - vaginal hull are pink and moist without loss of rugae and no evidence of atropy Cervix - without cervical motion tenderness and has normal size and features without evident lesions Uterus - mobile, no tenderness, uterus 6 wks Adnexa - clear without masses or tenderness ASSESSMENT/PLAN: Desires permanent sterilization. Plan to proceed with a la paroscopic bilateral salpingectomy. Discussed risk, benefit, alternatives and all questions were answered. We also discussed the permanent nature of the procedure, the failure rate of 1 to 2%. And the other availability of other nonpermanent control options. Procedure Criteria Procedure Type: Elective COVID Risk Discussion: The surgeon/proceduralist and patient have discussed in detail the risk of exposure to and/or potential harm posed by the COVID-19 virus with having a surgery/procedure at this time versus the risk of delaying the surgery/procedure. It is not possible to know either the risk of delaying the surgery or procedure or chance of getting an infection with perfect accuracy, bu t a joint decision was made between the patient and the surgeon/proceduralist to proceed at this time with the scheduled surgery/procedure as indicated on the consent form.
[2019-12-28 06:45] LABS: Internal QC Validated? YES +Cl - CLEAR BKGD; Pregnancy, Urine Negative Negative
[2019-12-28 06:48] VITALS: BP 111/65; PULSE 85; RESP 15; TEMP 36.8; O2SAT 98; BMI 35.6
[2019-12-28] MEDS: Lactated Ringers 1,000 ML 100 ML IV ×2 (06:53→08:51)
--- NOTE | 2019-12-28 07:29 | PCM.OPRPT ---
Report of Operation Date of Procedure: 12/28/19 Pre-Operative Diagnosis: Desires Permanent Sterilization Post-Operative Diagnosis: Desires Permanent Sterilization Surgery/Procedure Performed:: Laparoscopic Bilateral Salpingectomy Description of Surgical Findings:: 8 cm uterus with normal-appearing fallopian tubes and ovaries. Normal upper abdomen. Type of Anesthesia:: General - Endotracheal Anesthesiologist: Jose Nagy Specimen's removed: Bilateral fallopian tubes Estimated Blood Loss (mL): Minimal Fluids Replaced: Crystalloid Description of Procedure: Surgeon: Carloz Godoy MD, FACOG Indications: This is a 24 year old patient who has the above diagnosis. She has considered sterilization for quite some time. She is aware of the permanent nature of the procedure, the failure rate of 1-2%, and the availability of other nonpermanent control options. All questions were answered to consider the patient well-informed. Procedure: The patient was taken to the operating room where after induction of general anesthesia, she was placed in the dorsolithotomy position and prepped and draped in the usual sterile fashion. The bladder was drained of approximately 50 cc of clear yellow urine with a catheter. Anterior cervix was grasped with the tenaculum. Conn cannula was placed and attention was turned toward the laparoscopic portion of the procedure. Approximately 20 cc of half percent ropivacaine was injected subumbilically, suprapubically and midway between. A 5 mm bladeless trocar was placed subumbilically and intraperitoneal placement confirmed. After CO2 insufflation was complete, a 5 mm bladeless trocar was introduced suprapubically. The above findings were noted. A 5 mm bladeless port was then placed midway between these 2 ports for tubal manipulation. Each fallopian tube was identified to its fimbriated end and an Enseal device was used to divide the mesosalpinx to the uterus. Tubes were removed through the lower 5 mm port. The peritoneal cavity and upper abdomen were examined and noted to be normal. Photographs were taken. Laparoscopic instruments with as much CO2 gas as possible were removed and incisions were closed with interrupted 4-0 Monocryl suture. Steri-Strips placed across the incision. Vaginal instruments were removed. The patient tolerated the procedure well was taken to recovery room in satisfactory condition and sponge instrument and needle counts were all reportedly correct. Estimated blood loss for the case was minimal. There were no apparent complications of the surgery. Specimens to pathology was bilateral tubes Grafts/Implants Used: None - Complications None - Admit VTE Documentation VTE Present on Admission: Yes VTE Mechan Device Prophylaxis: SCD's
[2019-12-28] MEDS: Ropivacaine 0.5% 30 ML Vial (07:30)
--- NOTE | 2019-12-28 07:30 | FALS_PTH ---
PATIENT: VANESA BAKER LOC: [facility] – [place] U#:[id number] AGE/SX: 24/F ROOM: RE12/28/[address]: Dr. Carloz Godoy MD : 1995 BED: DIS: 12/28/2019 SPEC #: [id number] RECD: 12/28/19 10:14 STATUS: FELA ALLISON #: [id number] EUGENE: 12/28/19 07:[address]: Carloz Godoy DEPT: SURGICAL PATHOLOGY RECD BY: Cristin Zeng ENTERED: 12/28/19 10:31 SP TYPE: FALL TUBES OTHR DR: No Primary Care Phys Tissues: Fallopian tube Procedures: Surgery Specimen Level II HEADER OPERATION: Laparoscopic salpingectomy, bilateral PRE-OP DIAGNOSIS: Sterilization TISSUE SUBMITTED: Bilateral fallopian tubes MICROSCOPIC DIAGNOSIS Bilateral fallopian tubes, salpingectomy: Bilateral fallopian tubes including fimbrial ends, no pathologic diagnosis. SJ:aric 12/29/19 MICROSCOPIC DESCRIPTION Slides are reviewed. GROSS DESCRIPTION Received in fixative is one container labeled with the patient's name and designated bilateral fallopian tubes. The specimen consists of bilateral fallopian tubes including fimbrial ends measuring 6 cm in length and 0.5 cm in diameter and 7 cm in length and 0.5 cm in diameter. The fallopian tubes are not identified as right or left. Sections reveal unremarkable cut surfaces. Gel Coat Sprayer sections are submitted in two cassettes with each cassette containing one fallopian tube. / VICKEY:aric 12/28/19 TC:4 CPT: 83956 x2
--- NOTE | 2019-12-28 07:32 | DCINST_ITS ---
Discharge Diet: No Restrictions - Increase fluid intake for the next 48 hours. Discharge Activity: Return to Normal Activity, May Drive - when you are no longer taking pain/narcotic medicines., May Shower, May Take a Tub Bath Additional Activity Instructions:: Ambulate often the next week after surgery. Nothing in the vagina for 5 days. Call your doctor if your incision/area has: Continuous Slow Oozing, Sudden Increased Bleeding, Increased Pain/ Swelling, Increased Redness, Foul Smelling Discharge Call your doctor if you observe: Fever of 101 or Higher, Inability to urinate, Inability to have a bowel movement, Using more than one pad per hour Allergies/Adverse Reactions: Allergies amoxicillin Allergy (Verified 12/28/19 06:47) Hives shellfish derived Allergy (Verified 12/28/19 06:47) Hives Medications to take at Discharge Vits [Prenatabs FA ] 1 tablet PO DAILY 10/20/16 Acetaminophen [Tylenol Extra Strength] 1,000 mg PO Q6H PRN PRN 04/05/17 Diphenhydramine HCl [Benadryl Allergy] 25 mg PO PRN PRN 04/05/17 Oxycodone [Oxyir] 5 mg PO Q6H PRN PRN 7 Days #7 tablet 12/28/19 The following prescriptions were given: Oxycodone [Oxyir] 5 mg PO Q6H PRN PRN 7 Days #7 tablet PRN Reason: Pain Score 6-10/10 Transmission Status: Sent to [facility]30 Primary Care Physician: Care Physician,No Primary [Primary Care Provider] - Test Results: Test results from this visit will be discussed in further detail at your follow- up appointment, if applicable. Please Follow Up With: Carloz Godoy MD - [phone] When: 2 to 3 weeks
[2019-12-28 08:27] VITALS: BP 111/65; BP 99/67; PULSE 69; RESP 20; TEMP 36.6; O2SAT 95
[2019-12-28 08:30] VITALS: BP 107/94; BP 111/65; PULSE 74; RESP 16; O2SAT 95
[2019-12-28 08:45] VITALS: BP 106/75; BP 111/65; PULSE 69; RESP 16; O2SAT 94
[2019-12-28 08:53] VITALS: BP 102/68; BP 111/65; PULSE 65; RESP 16; TEMP 36.4; O2SAT 95
[2019-12-28 09:58] VITALS: BP 111/65; BP 118/55; PULSE 57; RESP 16; TEMP 36.4; O2SAT 95
--- OUTSIDE RECORDS SUMMARY | 2020-05-06 10:42 | XMS RPT_ITS | CCD ---
:1995 External Reference #:[id number] Author Organization [facility] [employer] Care Team Providers Name Role Phone Unavailable Unavailable Unavailable Results Result Name Value Range Unit Interpretation Flag Date Location progress on 2019-05 PROGRESS HNO ID: [id number] Normal 06-07-2019 [facility] Author: Kiara yoon ([id number]) Service: ? Author Type: Nurse Practitioner Type: Progress Notes Filed: 06/07/2019 9:04 AM Note Text: Subjective The history is provided by the patient and a relative. No ghada arce molding line assistant was used. HPI Vanesa Baker is a 23 year old female who presents today for CC of sore throat, cough congestion, bilateral ear pressure, green nasal drainage, that started about 2 weeks ago and won't go away. She has used hot tea, honey, with no relief. She is 17 weeks . De nies any bleeding or contractions. 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 BP 110/80 Pulse 114 Temp 37.1 ?C (98.7 ?F) (Tympanic) Resp 18 Wt 95.2 kg (209 lb 12.8 oz) SpO2 97% Social History Tobacco Use - Smoking status: Former Smoker - Smokeless tobacco: Never Used - Tobacco comment: quit at age 17 Substance Use Topics - Alcohol use: No - Drug use: No PAST MEDICAL HISTORY Diagnosis Date - NEGATIVE MEDICAL HISTORY I have confirmed and edited as necessary, the [place] Review of Systems Constitutional: Negative for chills and fever. HENT: Positive for sore throat. Negative for congestion, ear pain and sinus pain. Respiratory: Negative for cough, sputum production, shortnes s of breath and wheezing. Cardiovascular: Negative for chest pain. Musculoskeletal: Negative for myalgias. Neurological: Negative for headaches. Objective Physical Exam Constitutional: She is well-developed, well-nourished, and i n no distress. HENT: Head: Normocephalic and atraumatic. Right Ear: Tympanic membrane, external ear and ear canal nor mal. Left Ear: Tympanic membrane and ear canal normal. Nose: Mucosal edema and rhinorrhea present. Right sinus exhi bits maxillary sinus tenderness and frontal sinus tenderness. Left sinus ex hibits maxillary sinus tenderness and frontal sinus tenderness. Mouth/Throat: Uvula is midline and mucous membranes are norm al. Posterior oropharyngeal edema and posterior oropharyngeal erythema pre sent. Cardiovascular: Normal rate, regular rhythm and normal heart sounds. Pulmonary/Chest: Effort normal and breath sounds normal. No respiratory distress. She has no decreased breath sounds. She has no whe ezes. She has no rhonchi. She has no rales. She exhibits no tenderness. Lymphadenopathy: Head (right side): No submental, no submandibular and no ton sillar adenopathy present. Head (left side): No submental, no submandibular and no tons illar adenopathy present. She has no cervical adenopathy. Neurological: She is alert. Skin: Skin is warm and dry. Psychiatric: Affect normal. Nursing note and vitals reviewed. ASSESSMENT/PLAN: 1. Acute non-recurrent frontal sinusitis - ICD9: 461.1, ICD1 0: J01.10 (primary diagnosis) - Will begin treatment with as per antibiotic as written, se e orders - The patient should also be given behind the counter Pseudo ephedrine for the first 5-7 days of treatment. - Supportive care with plenty of fluids, rest, and tylenol a s needed - Follow up in one week if symptoms persist or worsen. 2. Sore throat - ICD9: 462, ICD10: J02.9 - suspect drainage - Rapid Strep negative in the office today - Discussed supportive care treatment with fluids, rest and analgesia. - The patient may also use warm salt water gargles, throat l ozenges and/or OTC throat spray as needed. - The patient should follow up in one week if symptoms persi st or worsen - Call back if drooling, increased temperature, symptoms of dehydration and/or still sick in one week - RAPID STREP TEST B/O - GROUP A STREPTOCOCCUS BY PCR * Seek medical care immediately, call 911, go to ER if you h ave chest pain, difficulty breathing, shortness of breath, inability t o swallow. Diagnosis and treatment plan were discussed and questions we re answered to the patient's satisfaction. Pt acknowledged understanding of concepts and follow up plan. Specific signs and symptoms that would indicate the need for higher level of care were discussed in detail warranting prompt ER evalua tion. Kiara Molina APRN.CNP group a strep by pcr on 2019-06-07 GAS Specimen Source Throat Swab Normal 06-07-20 [facility] ([id number]) Comment: Performed By: #### GASPCR ## ## [facility] [address] [place] [id number] Group A Strep PCR Negative for Group A Normal 1 08-07-2018 [facility] Streptococcus by PCR. [place] ([id number]) Comment: Result Comment: This test wa s developed and its performance characteristics determined by [facility]'s [facility] [place] ([facility]). It has not been cleared or a pproved by the FDA. [facility] is regulated under CLIA as qualified to perform high complexity testing. This test is used for clinical purposes. It should not be regarded as inv estigational or for research . Performed By: #### GASPCR ## ## [facility] [address] [place] [address] cnov on 2019-06-07 CNOV Office Visit ([facility]) Normal 06-07-20 [place] VANESA Carballo ([id number]) 1995 F [place] Date Time Provider Department ([id number]) 06/07/19 8:45 AM KIARA MOLINA WSJ LUIS During your visit today, we recorded the following informati on about you: Temperature Pulse Respiration Blood pressure 98.7 degrees 114/minute 18/minute 110/80 Weight 95.2 kg Kiara Molina APRN.POKER PROP PLAYER 06/07/2019 9:04 AM Signed Subjective The history is provided by the patient a nd a relative. No boarder steam was used. HPI Vanesa Baker is a 23 year old female who presents tod for CC of sore throat, cough congestion, bilateral ear pressure, gree n nasal drainage, that started about 2 weeks ago and won't go a way. She has used hot tea, honey, with no relief. She is 17 weeks . Denies any bleeding or contractions. 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 BP 110/80 Pulse 114 Temp 37.1 ?C (98.7 ?F) (Tympanic) Resp 18 Wt 95.2 kg (209 lb 12.8 oz) SpO2 97% Social History Tobacco Use - Smoking status: Former Smoker - Smokeless tobacco: Never Used - Tobacco comment: quit at age 17 Substance Use Topics - Alcohol use: No - Drug use: No PAST MEDICAL HISTORY Diagnosis Date - NEGATIVE MEDICAL HISTORY I have confirmed and edited as necessary, the [place] Review of Systems Constitutional: Negative for chills and fever. HENT: Positive for sore throat. Negative for congestion, e ar pain and sinus pain. Respiratory: Negative for cough, sputum production, shortn ess of breath and wheezing. Cardiovascular: Negative for chest pain. Musculoskeletal: Negative for myalgias. Neurological: Negative for headaches. Objective Physical Exam Constitutional: She is well-developed, well-nourished, and i n no distress. HENT: Head: Normocephalic and atraumatic. Right Ear: Tympanic membrane, external ear and ear canal nor mal. Left Ear: Tympanic membrane and ear canal normal. Nose: Mucosal edema and rhinorrhea present. Right sinus exhi bits maxillary sinus tenderness and frontal sinus tenderness. Left si nus exhibits maxillary sinus tenderness and frontal sinus tenderness. Mouth/Throat: Uvula is midline and mucous membranes are norm al. Posterior oropharyngeal edema and posterior oropharyngeal erythema pre sent. Cardiovascular: Normal rate, regular rhythm and normal heart sounds. Pulmonary/Chest: Effort normal and breath sounds normal. No respiratory distress. She has no decreased breath sounds. She has no wheezes. She has no rhonchi. She has no rales. She exhibits no tenderness. Lymphadenopathy: Head (right side): No submental, no submandibular and no ton sillar adenopathy present. Head (left side): No submental, no submandibular and no tons illar adenopathy present. She has no cervical adenopathy. Neurological: She is alert. Skin: Skin is warm and dry. Psychiatric: Affect normal. Nursing note and vitals reviewed. ASSESSMENT/PLAN: 1. Acute non-recurrent frontal sinusitis - ICD9: 461.1, ICD10: J01.10 (primary diagnosis) - Will begin treatment with as per antibiotic as written, se e orders - The patient should also be given behind the co unter Pseudoephedrine for the first 5-7 days of treatment. - Supportive care with plenty of fluids, rest, and tylenol a s needed - Follow up in one week if symptoms persist or worsen. 2. Sore throat - ICD9: 462, ICD10: J02.9 - suspect drainage - Rapid Strep negative in the office today - Discussed supportive care treatment with fluids, rest and analgesia. - The patient may also use warm salt noel er gargles, throat lozenges and/or OTC throat spray as needed. - The patient should follow up in one week if symptoms persi st or worsen - Call back if drooling, increased tempe rature, symptoms of dehydration and/or still sick in one week - RAPID STREP TEST B/O - GROUP A STREPTOCOCCUS BY PCR * Seek medical care immediately, call 911, go to ER if you have chest pain, difficulty breathing, shortness of breath, inability to swal low. Diagnosis and treatment plan were discus sed and questions were answered to the patient's satisfaction. Pt a cknowledged understanding of concepts and follow up plan. Specific signs and symptoms that would indicate the pr ed for higher level of care were discussed in detail warranting prompt ER evaluatio n. Kiara Molina APRN.ELLIE Molina APRN.CNP 06/07/2019 9:00 AM Signed ASSESSMENT/PLAN: 1. Acute non-recurrent frontal sinusitis - ICD9: 461.1, ICD10: J01.10 (primary diagnosis) - Will begin treatment with as per antibiotic as written, se e orders - The patient should also be given behind the co unter Pseudoephedrine for the first 5-7 days of treatment. - Supportive care with plenty of fluids, rest, and tylenol a s needed - Follow up in one week if symptoms persist or worsen. 2. Sore throat - ICD9: 462, ICD10: J02.9 - suspect drainage - Rapid Strep negative in the office today - Discussed supportive care treatment with fluids, rest and analgesia. - The patient may also use warm salt noel er gargles, throat lozenges and/or OTC throat spray as needed. - The patient should follow up in one week if symptoms persi st or worsen - Call back if drooling, increased tempe rature, symptoms of dehydration and/or still sick in one week - RAPID STREP TEST B/O - GROUP A STREPTOCOCCUS BY PCR * Seek medical care immediately, call 911, go to ER if you have chest pain, difficulty breathing, shortness of breath, inability to swal low. Referring Provider: SELF [200] Allergies As of Date: 06/07/2019 Noted Allergy Reaction AMOXICILLIN 11/27/2015 2 - Rash Date Reviewed: 06/07/2019 Reviewed by: Kiara Molina - Fully Assessed Reason for Visit: Sore Throat [200] Cmt: ST, JAMIL, bilateral ear pian, bodyaches x 2 weeks Primary Visit Diagnosis:Acute non-recurrent frontal sinusiti s [J01.10] Other Visit Diagnosis:Sore throat [J02.9] Order(s):RAPID STREP TEST B/O [[id number]] Order #: [id number] GROUP A STREPTOCOCCUS BY PCR [SQGASPCR] Order #: [id number] cefdinir (OMNICEF) 300 mg capsuleTake 1 capsule by mouth twi ce daily for 10 days.Disp: 20 capsuleRfl: 0 Prescriptions as of 06/07/2019 Sig: PRE-BALTAZAR MULTIVITAMINS/MINERAL* Take by mouth. CEFDINIR 300 MG CAPSULE Take 1 capsule by mouth twice* NORGESTIMATE 0.18 MG/0.215 MG* Take 28 tablets by mouth once * Problem List As Of Date 06/07/2019 Noted Resolved PMDD (premenstrual dysphoric disorder) [F32.81] 09/19/2013 Other instructions from your clinician: ASSESSMENT/PLAN: 1. Acute non-recurrent frontal sinusitis - ICD9: 461.1, ICD1 0: J01.10 (primary diagnosis) - Will begin treatment with as per antibiotic as written, se e orders - The patient should also be given behind the counter Pseudo ephedrine for the first 5-7 days of treatment. - Supportive care with plenty of fluids, rest, and tylenol a s needed - Follow up in one week if symptoms persist or worsen. 2. Sore throat - ICD9: 462, ICD10: J02.9 - suspect drainage - Rapid Strep negative in the office today - Discussed supportive care treatment with fluids, rest and analgesia. - The patient may also use warm salt water gargles, throat l ozenges and/or OTC throat spray as needed. - The patient should follow up in one week if symptoms persi st or worsen - Call back if drooling, increased temperature, symptoms of dehydration and/or still sick in one week - RAPID STREP TEST B/O - GROUP A STREPTOCOCCUS BY PCR * Seek medical care immediately, call 911, go to ER if you h ave chest pain, difficulty breathing, shortness of breath, inability t o swallow. Prescriptions ordered this encounter Disp Refills Start End CEFDINIR 300 MG CAPSULE 20 c* 0 06/07/2019 06/17/2019 Route: ORAL Sig: Take 1 capsule by mouth twice daily for 10 days. Encounter Status:Closed by KIARA MOLINA CNP on 06/07/19 progress on 2018-11 PROGRESS HNO ID: [id number] Normal 11-30-2018 [facility] Author: Kiara (Ellie) Tracy Vazquez ([id number]) Service: ? Author Type: Nurse Practitioner Type: Progress Notes Filed: 11/30/2018 7:00 PM Note Text: Subjective HPI Vanesa Baker is a 23 year old female who presents today for CC of right ear pain. This started in the past 24 hours. She also for a week has had nasal congestion, post nasal drainage and cough. She has used OTC cough and cold medications without relief. She denies any lo ng term medical problems with ENT. BP 130/82 Pulse 98 Temp 36.8 ?C (98.3 ?F) (Tympanic) R maximiliano 16 Wt 92.4 kg (203 lb 12.8 oz) SpO2 99% Social History Socioeconomic History Marital status: Spouse name: Not on file Number of children: Not on file Years of education: Not on file Highest education level: Not on file Social Needs Financial resource strain: Not on file Food insecurity - worry: Not on file Food insecurity - inability: Not on file Transportation needs - medical: Not on file Transportation needs - non-medical: Not on file Occupational History Occupation: NOT A STUDENT Comment: Taking [email or web address] classes Tobacco Use Smoking status: Former Smoker Smokeless tobacco: Never Used Tobacco comment: quit at age 17 Substance and Sexual Activity Alcohol use: No Drug use: No Sexual activity: Never Other Topics Concerns: Not on file Social History Narrative Not on file PAST MEDICAL HISTORY Diagnosis Date - NEGATIVE MEDICAL HISTORY I have confirmed and edited as necessary, the [place] Review of Systems Constitutional: Negative for chills and fever. HENT: Positive for congestion and ear pain (right). Negative for sinus pain and sore throat. Respiratory: Positive for cough. Negative for sputum product ion, shortness of breath and wheezing. Cardiovascular: Negative for chest pain. Musculoskeletal: Negative for myalgias. Neurological: Negative for headaches. All other systems reviewed and are negative. Objective Physical Exam Constitutional: She is well-developed, well-nourished, and i n no distress. HENT: Head: Normocephalic and atraumatic. Right Ear: External ear and ear canal normal. Tympanic membr ane is injected, erythematous and retracted. Tympanic membrane is n ot bulging. A middle ear effusion (purulent) is present. Left Ear: Tympanic membrane and ear canal normal. Tympanic m embrane is not erythematous, not retracted and not bulging. No middle ear e ffusion. Nose: Mucosal edema and rhinorrhea present. Right sinus exhi bits no maxillary sinus tenderness and no frontal sinus tenderness. Left sinus exhibits no maxillary sinus tenderness and no frontal sinus tenderness. Mouth/Throat: Uvula is midline, oropharynx is clear and mois t and mucous membranes are normal. No oropharyngeal exudate, posterior or opharyngeal edema, posterior oropharyngeal erythema or tonsillar abscess es. Kiara Molina, BASKET PERSON.POKER PROP PLAYER removed impacted cerumen using a plasti c curette using standard procedure without complication, after obtaini patient permission with risks and benefits discussed. Cardiovascular: Normal rate, regular rhythm and normal heart sounds. Pulmonary/Chest: Effort normal and breath sounds normal. No respiratory distress. She has no decreased breath sounds. She has no whe ezes. She has no rhonchi. She has no rales. A dry cough was noted during this encounter. Talking in full sentences. Handling secretions without drooling. Lips and nailbeds are pink without cyanosis. Lymphadenopathy: Head (right side): No submental, no submandibular and no ton sillar adenopathy present. Head (left side): No submental, no submandibular and no tons illar adenopathy present. She has no cervical adenopathy. Neurological: She is alert. Skin: Skin is warm and dry. Psychiatric: Affect normal. Nursing note and vitals reviewed. ASSESSMENT/PLAN: 1. URI with cough and congestion - ICD9: 465.9, ICD10: J06.9 (primary diagnosis) - Discussed viral etiology and rationale for treatment. Rest, increase water intake Motrin or Tylenol as needed for fever or pain. Salt water gargles, chloraseptic spray or lozenges as needed for sore throat. Warm beverages, honey. Nasal saline spray as needed Cool mist humidifier at night A cold normally lasts 7-10 days. If your symptoms are lastin g longer, develop fever, or worsening by that time instead of improvin g then return to clinic or follow up with PCP for re-evaluation. Flonase or Nasonex 1 spray each nostril two times a day. Tylenol (generic acetaminophen) 500 mg-2 tabs every 8 hrs. a s needed for fever and aches Ibuprofen 600 mg (3-200mg tablets) every 6 hours -Sudafed (generic is fine), behind the counter, 2x30 mg tabs twice daily as needed for congestion for 2-3 days Acute suppr otitis media w/o spon rupt ear drum, right ear - ICD9: 382.00, ICD10: H66.001 - Will begin treatment with as per antibiotic as written, se e orders - Follow up in one week if symptoms persist or worsen. 3. Impacted cerumen of right ear - ICD9: 380.4, ICD10: H61.2 1 Use may use OTC Debrox or Cerumenex once a month for mainten ance. Avoid inserting Q-tips into your ears. Follow up with your PCP as needed. * Seek medical care immediately, call 911, go to ER if you h ave chest pain, difficulty breathing, shortness of breath, inability t o swallow. Diagnosis and treatment plan were discussed and questions we re answered to the patient's satisfaction. Pt acknowledged understanding of concepts and follow up plan. Specific signs and symptoms that would indicate the need for higher level of care were discussed in detail warranting prompt ER evalua tion. MEGAN Jackosn on 2018-11-30 CNOV Office Visit ([facility]) Normal 12-01-19 [place] VANESA BAKER ([id number]) 1995 [facility] Date Time Provider Department ([id number]) 11/30/18 6:15 PM KIARA MOLINA (POKER PROP PLAYER) [facility]STR During your visit today, we recorded the following informati on about you: Temperature Pulse Respiration Blood pressure 98.3 degrees 98/minute 16/minute 130/82 Weight 92.4 kg Kiara Molina APRN.CNP 11/30/2018 7:00 PM Signed Subjective HPI Vanesa Baker is a 23 year old female who presents today for CC of right ear pain. This started in the past 24 hours. She also for a week has had nasal congestion, post nasal drainage and cough. She has u sed OTC cough and cold medications without relief. She denies any group home me dical problems with ENT. BP 130/82 Pulse 98 Temp 36.8 ?C (98.3 ?F) (Tympanic) R maximiliano 16 Wt 92.4 kg (203 lb 12.8 oz) SpO2 99% Social History Socioeconomic History Marital status: Spouse name: Not on file Number of children: Not on file Years of education: Not on file Highest education level: Not on file Social Needs Financial resource strain: Not on file Food insecurity - worry: Not on file Food insecurity - inability: Not on file Transportation needs - medical: Not on file Transportation needs - non-medical: Not on file Occupational History Occupation: NOT A STUDENT Comment: Taking [employer] classes Tobacco Use Smoking status: Former Smoker Smokeless tobacco: Never Used Tobacco comment: quit at age 17 Substance and Sexual Activity Alcohol use: No Drug use: No Sexual activity: Never Other Topics Concerns: Not on file Social History Narrative Not on file PAST MEDICAL HISTORY Diagnosis Date - NEGATIVE MEDICAL HISTORY I have confirmed and edited as necessary, the [place] Review of Systems Constitutional: Negative for chills and fever. HENT: Positive for congestio n and ear pain (right). Negative for sinus pain and sore throat. Respiratory: Positive for cough. Negative for sp utum production, shortness of breath and wheezing. Cardiovascular: Negative for chest pain. Musculoskeletal: Negative for myalgias. Neurological: Negative for headaches. All other systems reviewed and are negative. Objective Physical Exam Constitutional: She is well-developed, well-nourished, and i n no distress. HENT: Head: Normocephalic and atraumatic. Right Ear: External ear and ear canal normal. Tympanic membrane is injected, erythematous and retracted. Tympanic membrane is not bulging . A middle ear effusion (purulent) is present. Left Ear: Tympanic membrane and ear canal normal. Tympanic m embrane is not erythematous, not retracted and not bulging. No middle ear e ffusion. Nose: Mucosal edema and rhinorrhea present. Righ t sinus exhibits no maxillary sinus tenderness and no frontal sinus tenderness. Left sinus exhibits no maxillary sinus tenderness and no frontal sinus tenderness. Mouth/Throat: Uvula is midline, oropharynx is clear and mois t and mucous membranes are normal. No oropharyngeal e xudate, posterior oropharyngeal edema, posterior oropharyngeal erythema or tonsillar abscesses. Kiara Molina, ANTONIO.POKER PROP PLAYER removed impacted cerumen using a plas tic curette using standard procedure without complication, after obtaining p atient permission with risks and benefits discussed. Cardiovascular: Normal rate, regular rhythm and normal heart sounds. Pulmonary/Chest: Effort normal and breath sounds normal. No respiratory distress. She has no decreased breath sounds. She has no wheezes. She has no rhonchi. She has no rales. A dry cough was noted during this encounter. Talking in full sentences. Handling secretions without drooling. Lips and nailbeds are pink without cyanosis. Lymphadenopathy: Head (right side): No submental, no submandibular and no ton sillar adenopathy present. Head (left side): No submental, no submandibular and no tons illar adenopathy present. She has no cervical adenopathy. Neurological: She is alert. Skin: Skin is warm and dry. Psychiatric: Affect normal. Nursing note and vitals reviewed. ASSESSMENT/PLAN: 1. URI with cough and conges tion - ICD9: 465.9, ICD10: J06.9 (primary diagnosis) - Discussed viral etiology and rationale for treatment. Rest, increase water intake Motrin or Tylenol as needed for fever or pain. Salt water gargles, chloraseptic spray or lozeng es as needed for sore throat. Warm beverages, honey. Nasal saline spray as needed Cool mist humidifier at night A cold normally lasts 7-10 days. If your symptom s are lasting longer, develop fever, or worsening by that time instead of improving then return to clinic or follow up with PCP for re-evaluation. Flonase or Nasonex 1 spray each nostril two times a day. Tylenol (generic acetaminophen) 500 mg-2 tabs every 8 hrs. as needed for fever and aches Ibuprofen 600 mg (3-200mg tablets) every 6 hours -Sudafed (generic is fine), behind the counter, 2x30 mg ta bs twice daily as needed for congestion for 2-3 days Acute suppr otitis media w/o spon rupt ear drum, right ear - ICD9: 382.00, ICD10: H66.001 - Will begin treatment with as per antibiotic as written, se e orders - Follow up in one week if symptoms persist or worsen. 3. Impacted cerumen of right ear - ICD9: 380.4, ICD10: H61.2 1 Use may use OTC Debrox or Cerumenex once a month for mainten ance. Avoid inserting Q-tips into your ears. Follow up with your PCP as needed. * Seek medical care immediately, call 911, go to ER if you have chest pain, difficulty breathing, shortness of breath, inability to swal low. Diagnosis and treatment plan were discus sed and questions were answered to the patient's satisfaction. Pt a cknowledged understanding of concepts and follow up plan. Specific signs and symptoms that would indicate the pr ed for higher level of care were discussed in detail warranting prompt ER evaluatio nMEGAN Christianson APRN.CNP 11/30/2018 6:29 PM Signed ASSESSMENT/PLAN: 1. URI with cough and conges tion - ICD9: 465.9, ICD10: J06.9 (primary diagnosis) - Discussed viral etiology and rationale for treatment. Rest, increase water intake Motrin or Tylenol as needed for fever or pain. Salt water gargles, chloraseptic spray or lozeng es as needed for sore throat. Warm beverages, honey. Nasal saline spray as needed Cool mist humidifier at night A cold normally lasts 7-10 days. If your symptom s are lasting longer, develop fever, or worsening by that time instead of improving then return to clinic or follow up with PCP for re-evaluation. Flonase or Nasonex 1 spray each nostril two times a day. Tylenol (generic acetaminophen) 500 mg-2 tabs every 8 hrs. as needed for fever and aches Ibuprofen 600 mg (3-200mg tablets) every 6 hours -Sudafed (generic is fine), behind the counter, 2x30 mg ta bs twice daily as needed for congestion for 2-3 days Acute suppr otitis media w/o spon rupt ear drum, right ear - ICD9: 382.00, ICD10: H66.001 - Will begin treatment with as per antibiotic as written, se e orders - Follow up in one week if symptoms persist or worsen. 3. Impacted cerumen of right ear - ICD9: 380.4, ICD10: H61.2 1 Use may use OTC Debrox or Cerumenex once a month for mainten ance. Avoid inserting Q-tips into your ears. Follow up with your PCP as needed. * Seek medical care immediately, call 911, go to ER if you have chest pain, difficulty breathing, shortness of breath, inability to swal low. Referring Provider: SELF [[id number]] Allergies As of Date: 11/30/2018 Noted Allergy Reaction AMOXICILLIN 11/27/2015 2 - Rash Date Reviewed: 11/30/2018 Reviewed by: [facility] - Fully Assessed Reason for Visit: Ear Pain [817] Cmt: right ear pain x 1 day Primary Visit Diagnosis:URI with cough and congestion [J06.9 ] Other Visit Diagnoses:Acute suppr otitis media w/o spo n rupt ear drum, right ear [H66.001] Impacted cerumen of right ear [H61.21] Order(s):cefdinir (OMNICEF) 300 mg capsuleTake 1 capsule by mouth twice daily for 10 days.Disp: 20 capsuleRfl: 0 Prescriptions as of 11/30/2018 Sig: CEFDINIR 300 MG CAPSULE Take 1 capsule by mouth twice* PRE-BALTAZAR MULTIVITAMINS/MINERAL* Take by mouth. NORGESTIMATE 0.18 MG/0.215 MG* Take 28 tablets by mouth once * Problem List As Of Date 11/30/2018 Noted Resolved PMDD (premenstrual dysphoric disorder) [F32.81] INVALID FOR* Other instructions from your clinician: ASSESSMENT/PLAN: 1. URI with cough and congestion - ICD9: 465.9, ICD10: J06.9 (primary diagnosis) - Discussed viral etiology and rationale for treatment. Rest, increase water intake Motrin or Tylenol as needed for fever or pain. Salt water gargles, chloraseptic spray or lozenges as needed for sore throat. Warm beverages, honey. Nasal saline spray as needed Cool mist humidifier at night A cold normally lasts 7-10 days. If your symptoms are lastin g longer, develop fever, or worsening by that time instead of improvin g then return to clinic or follow up with PCP for re-evaluation. Flonase or Nasonex 1 spray each nostril two times a day. Tylenol (generic acetaminophen) 500 mg-2 tabs every 8 hrs. a s needed for fever and aches Ibuprofen 600 mg (3-200mg tablets) every 6 hours -Sudafed (generic is fine), behind the counter, 2x30 mg tabs twice daily as needed for congestion for 2-3 days Acute suppr otitis media w/o spon rupt ear drum, right ear - ICD9: 382.00, ICD10: H66.001 - Will begin treatment with as per antibiotic as written, se e orders - Follow up in one week if symptoms persist or worsen. 3. Impacted cerumen of right ear - ICD9: 380.4, ICD10: H61.2 1 Use may use OTC Debrox or Cerumenex once a month for mainten ance. Avoid inserting Q-tips into your ears. Follow up with your PCP as needed. * Seek medical care immediately, call 911, go to ER if you h ave chest pain, difficulty breathing, shortness of breath, inability t o swallow. Prescriptions ordered this encounter Disp Refills Start End CEFDINIR 300 MG CAPSULE 20 c* 0 11/30/2018 12/10/2018 Route: ORAL Sig: Take 1 capsule by mouth twice daily for 10 days. Encounter Status:Closed by KIARA MOLINA CNP on 11/30/18 Summary Purpose Family History No Family History Records Found Advance Directives No Advanced Directives Records Found Additional Source Comments FOR RECORDS PERTAINING TO PATIENTS WHO ARE OR HAVE BEEN ENROLLED IN A CHEMICAL DEPENDENCY/SUBSTANCE ABUSE PROGRAM, SOME INFORMATION MAY BE OMITTED. This clinical summary was aggregated from multiple sources. Caution should be exercised in using it in the provision of clinical care. This summary normalizes information from multiple sources, and as a consequence, information in this document may materially changethe coding, format and clinical context of patient data. In addition, data may be omittedin some cases. CLINICAL DECISIONS SHOULD BE BASED ON THE PRIMARY CLINICAL RECORDS. [facility] provides no warranty or guarantee of the accuracy or completeness of information in this document. UNRECOGNIZED CONTENT PROVIDED BELOW FOR UNRECOGNIZED SECTION INFORMATION SOURCE DATE CREATED AUTHOR AUTHOR'S ORGANIZATIO N 06/08/2019 [facility] Gabriel gardner
== END 2019-12-28 10:01 | disposition home or self-care (01) ==
LOC: SDC 05:59 → AC 05:59
PROVIDERS: Anesthesiology; Referring Provider Obstetrics & Gynecology; Visit Provider Obstetrics & Gynecology
PROC: (CPT 58661; principal; 2019-12-28 07:15)
DX: Z30.2 Encounter for sterilization (principal); Z11.59 Encounter for screening for other viral diseases
CPT/HCPCS: 00840; 58661; 36415; 81025; 84703; 85027; 85610; 85730; 86850; 86900; 86901; 87635; 88302; G2023; J7120; C1760; J2405; U0003

== ENCOUNTER 2020-06-29 12:43 | Emergency (ER) | payer BC, MEDICAID, SELFPAY ==
[2020-06-29 12:44] VITALS: BP 129/88; PULSE 92; RESP 18; TEMP 35.8; O2SAT 99; BMI 38.9
--- NOTE | 2020-06-29 12:51 | ED.VIS.GEN ---
History of Present Illness Informant: Patient Onset: Today Narrative: 24-year-old right hand dominant female presents with laceration on her right thumb. She cut it on a dry primer powder blender blade just prior to arrival. Bleeding controlled. Denies weakness, numbness, or tingling. Last tetanus unknown. <Gala Bruner - Last Filed: 06/29/20 13:07> <Adryan Hansen - Last Filed: 06/29/20 13:12> Chief Complaint: Laceration Past Medical History Prior records reviewed: No Smoking Status: Never smoker <Gala Bruner - Last Filed: 06/29/20 13:07> <Adryan Hansen - Last Filed: 06/29/20 13:12> - Allergies and Home Meds Allergies/Adverse Reactions: Allergies amoxicillin Allergy (Verified 06/29/20 12:51) Hives shellfish derived Allergy (Verified 06/29/20 12:51) Hives Primary Care Physician: Care Physician,No Primary [Primary Care Provider] - Review of Systems General: Denies: Chills, Fever, Sweats Eyes: Denies: Visual changes - bilaterally, Diplopia ENT: Denies: Rhinorrhea, Sore throat Cardiovascular: Denies: Chest pain, Palpitations Respiratory: Denies: Dyspnea, Cough, Dyspnea on exertion Gastrointestinal: Denies: Abdominal pain, Nausea, Vomiting, Diarrhea, Melena, Hematochezia Genitourinary: Denies: Dysuria, Hematuria, Frequency Musculoskeletal: Denies: Back pain, Extremity Pain Skin: Reports: Wounds. Denies: Rash, Abscess Neurological: Denies: Headache, Weakness, Numbness <Gala Bruner - Last Filed: 06/29/20 13:07> Physical Exam Vital Signs/Narrative: Vital Signs Temp Pulse Resp BP Pulse Ox 06/29/20 12:44 96.5 F L 92 18 129/88 H 99 Inital Vital Signs reviewed: Yes General: Well nourished, Well developed, No Acute Distress Head: Normocephalic, Atraumatic Eyes: Perrl, EOMI ENT: Moist mucous membranes, No rhinorrhea Neck: Supple, Nontender Cardiovascular: Regular rate, Regular rhythm, No murmurs Respiratory: No distress, CTA bilaterally, Chest nontender Back: Nontender, Normal Inspection Extremities: Nontender, No edema Skin: Normal color, No rash, - - 1 cm laceration on volar, radial aspect of distal right thumb Neurological: Alert, Oriented x3, Cranial nerves II-XII grossly intact, Normal Strength, Normal Sensation Psychological: Normal affect, Normal Mood <Gala Bruner - Last Filed: 06/29/20 13:07> Vital Signs/Narrative: Vital Signs Temp Pulse Resp BP Pulse Ox 06/29/20 12:44 96.5 F L 92 18 129/88 H 99 <Adryan Hansen - Last Filed: 06/29/20 13:12> Diagnostic/Tx/Re-eval - Medical Decision Making Patient presented with 1 cm laceration on her right thumb. She is neurovascular intact. It was anesthetized with 1 cc of 1% lidocaine and thoroughly irrigated with sterile saline. Wound was closed with 2 simple interrupted sutures of 5-0 Ethilon. Discussed general wound care and sutures need removed in 7-10 days. Tetanus updated. She was discharged home in stable condition. <Gala Bruner - Last Filed: 06/29/20 13:07> - Medical Decision Making Patient seen and examined agree with above assessment and plan. Laceration was repaired with interrupted sutures. These will need to be removed and 7 to 10 days. She is to monitor for evidence of infection. Discharged home in stable condition. <Adryan Hansen - Last Filed: 06/29/20 13:12> ED Disposition <Gala Bruner - Last Filed: 06/29/20 13:07> <Adryan Hansen - Last Filed: 06/29/20 13:12> - Plan for ED Patient: Disposition: Home or Assisted Living Diagnosis: Laceration Instructions: ED Laceration: All Closures Referrals: Care Physician,No Primary [Primary Care Provider] - 7 Days for suture removal
[2020-06-29] MEDS: Diphth,Pertuss(Acell),Tet Vac 0.5 ML Vial IM (12:58)
[2020-06-29] MEDS: Lidocaine 1% (20 ml mdv) 20 ML Vial INFILT (12:59)
== END 2020-06-29 13:28 | disposition home or self-care (01) ==
LOC: ED 13:26
PROVIDERS: Emergency Provider Physician Assistant
DX: S61.011A Laceration without foreign body of right thumb without damage to nail, initial encounter (principal); W29.0XXA Contact with powered kitchen appliance, initial encounter; Y93.9 Activity, unspecified; Y92.9 Unspecified place or not applicable; Y99.9 Unspecified external cause status; Z23 Encounter for immunization
CPT/HCPCS: 12001; 90471; 90715; 99284

== ENCOUNTER 2021-01-12 17:22 | Emergency (ER) | payer BC, MEDICAID, SELFPAY ==
[2021-01-12 17:22] VITALS: BP 133/74; PULSE 92; RESP 18; TEMP 36.3; O2SAT 95; BMI 34.4
--- NOTE | 2021-01-12 18:08 | EX.ED.DYSGE1 ---
HPI History of Present Illness Chief Complaint: Foreign Body Informant: patient Narrative Narrative: Patient is a 25-year-old previously healthy female who presents to the emergency department for fishing hook stuck in her left thumb. This occurred just prior to arrival in the emergency department. Patient tried to remove the fishing hook but the adrian has been stuck under the skin. She is right-handed at baseline. She denies any other injury. Patient states her last tetanus shot was around 6 months ago. No loss of sensation in the thumb. PFSH PFSH Medical History (Updated 01/12/21 @ 18:[address] Adryan Hansen DO) 37 weeks gestation of Maternal fever during labor, antepartum Home Medications acetaminophen [Tylenol Extra Strength] 1,000 mg PO Q6H PRN PRN 04/05/17 [History Last Taken 04/05/17 17:45] Allergy/AdvReac Type Severity Reaction Status Date / Time amoxicillin Allergy Hives Verified 06/29/20 12:51 shellfish derived Allergy Hives Verified 06/29/20 12:51 Surgical History (Updated 01/12/21 @ 18:34 by Daisy Chaparro) Tubal ligation status Social History Smoking Status: Never smoker ROS ROS ED Constitutional Constitutional ED: Denies chills or fever(s) ENT ENT ED: Denies epistaxis Cardiovascular Cardiovascular: Denies chest pain Respiratory/Chest Respiratory/Chest: Denies cough or dyspnea Gastrointestinal Gastrointestinal: Denies abdominal pain, nausea or vomiting Musculoskeletal Musculoskeletal: Denies back pain or neck pain Integumentary Denies rash Neurologic Neurologic: Denies dizziness, headache(s) or weakness EXAM Physical Exam Const Vital Signs: 01/12/21 17:22 01/12/21 18:33 01/12/21 18:57 Temperature 97.4 F L 97.4 F L Temperature Source Temporal Temporal Pulse Rate 92 92 79 Respiratory Rate 18 18 20 H Blood Pressure 133/74 H 133/74 H Blood Pressure Mean 93 93 Pulse Ox 95 95 100 Oxygen Delivery Method Room Air Room Air Positive well nourished and well developed General Appearance ED: well developed HEENT Negative for trauma Eyes PERRL and EOMs intact bilaterally Neck supple Resp normal respiratory effort Cardio regular rate and regular rhythm GI non-distended Palpation: soft Extremity normal to inspection Extremity Narrative: Single adrian is stuck in the pad of the left finger. Full range of motion intact. No evidence of surrounding cellulitis. Sensation intact. Brisk capillary refill. Neuro Sensorium / Orientation: alert Motor Exam: strength 5/5 throughout Psych mental status grossly normal Skin no rashes or lesions noted MDM MDM MDM Narrative Medical decision making narrative: Patient presents to the emergency department for fishing hook stuck in her left pad of her thumb. The thumb was anesthetized after the area is cleaned with alcohol pad using a digital block with 1% lidocaine, 5 cc. Local was then able to be pulled out of the skin without any apparent complication. The area was cleaned out with warm soapy water. She is to monitor for evidence of infection. Antibiotic ointment was applied and a Band-Aid was used to dress this. Return precautions are reviewed with her including difficulty moving the thumb, significant swelling or streaking up the finger. She understands and is agreeable with plan. Discharged home in stable condition. All questions answered. Discharge Plan Triage Chief Complaint: Foreign Body ED Provider: Adryan Hansen Dx/Rx/DC Orders Clinical Impression: Fishing hook foreign body Instructions: ED Fish Hook Removal Prescriptions: No Action acetaminophen [Tylenol Extra Strength] 500 MG tablet 1,000 mg PO Q6H PRN PRN (Reason: HEADACHE) RF: 0 Primary Care Provider: Care Physician,No Primary Referrals: Care Physician,No Primary [Primary Care Provider] - As Needed Disposition Disposition: Home, Self Care Discharge Date/Time: 01/12/21 18:58
[2021-01-12 18:33] VITALS: BP 133/74; PULSE 92; RESP 18; TEMP 36.3; O2SAT 95
[2021-01-12 18:57] VITALS: PULSE 79; RESP 20; O2SAT 100
--- NOTE | 2021-01-12 18:57 | ED.RN ---
THIS NURSE REVIEWED D/C INSTRUCTIONS WITH PT. PT VERBALIZED UNDERSTANDING OF INSTRUCTIONS. PT DENIES FURTHER NEEDS OR QUESTIONS AT THIS TIME. PT AMBULATES FROM ROOM OWN WITHOUT ASSISTANCE FROM STAFF
== END 2021-01-12 18:58 | disposition home or self-care (01) ==
PROVIDERS: Emergency Provider Emergency Medicine
DX: S61.042A Puncture wound with foreign body of left thumb without damage to nail, initial encounter (principal); W45.8XXA Other foreign body or object entering through skin, initial encounter; Y93.19 Activity, other involving water and watercraft; Y92.9 Unspecified place or not applicable; Y99.9 Unspecified external cause status; Z98.51 Tubal ligation status
CPT/HCPCS: 99282

== ENCOUNTER 2021-08-25 13:39 | Emergency (ER) | payer MEDICAID, SELFPAY ==
[2021-08-25 13:40] VITALS: BP 137/89; PULSE 90; RESP 17; TEMP 36.2; O2SAT 97; BMI 41.3
[2021-08-25 13:49] VITALS: BP 137/89; PULSE 90; RESP 17; TEMP 36.2; O2SAT 97
--- NOTE | 2021-08-25 13:53 | EDS_ITS ---
HPI History of Present Illness Chief Complaint: Dental Detail of Chief Complaint: Dental pain status post extraction of wisdom teeth Informant: patient Narrative Narrative: Patient presents to the emergency department stating that she had her wisdom teeth extracted 5 days ago at [facility] in [place]. Patient states that she was given a prescription for 20 Vicodin which she has finished. She is continued complain of a lot of pain and complains of foul odor to her breath. Patient is try to contact the dentist however because of the recent heavy snow the offices of been closed in the weekend the office was closed. Patient thinks she may have had a fever yesterday but has not felt hot since then. Patient otherwise has no medical problems. Patient states that most of her pain is left lower mandible. Prior similar symptoms: No PFSH PFSH Medical History (Updated 08/25/21 @ 13:[address] Edwar Zuniga, ) 37 weeks gestation of Maternal fever during labor, antepartum Home Medications acetaminophen [Tylenol Extra Strength] 1,000 mg PO Q6H PRN PRN 04/05/17 [History Last Taken 04/05/17 17:45] clindamycin HCl [Cleocin HCl] 300 mg PO Q6H #40 capsule 08/25/21 [Rx Last Taken Unknown] hydrocodone-acetaminophen 1 tab PO Q4H PRN PRN 3 Days #15 tablet 08/25/21 [Rx Last Taken Unknown] Allergy/AdvReac Type Severity Reaction Status Date / Time amoxicillin Allergy Hives Verified 08/25/21 13:40 shellfish derived Allergy Hives Verified 08/25/21 13:40 Surgical History Tubal ligation status Social History Smoking Status: Never smoker ROS ROS ED Constitutional Constitutional ED: Reports systems reviewed and no addt'l complaints, except as documented; Denies body ache(s), change in weight or chills Eyes Eyes: Denies acute decrease in peripheral vision, change in vision, double vision or loss of vision ENT ENT ED: Reports none and other Details: Dental pain ; Denies ear pain, lip swelling, loss taste/smell, neck pain, otalgia or sore throat Cardiovascular Cardiovascular: Reports none; Denies abdominal pain, chest pain with activity, leg edema, lightheadedness, palpitations, rapid heart rate or syncope Respiratory/Chest Respiratory/Chest: Reports none; Denies change in mental status, dry cough, dyspnea, hemoptysis, shortness of breath at rest or shortness of breath with exertion Gastrointestinal Gastrointestinal: Reports none; Denies abdominal pain, change in stool character, diarrhea, hematemesis, hematochezia, melena, rectal bleeding or vomiting Genitourinary Genitourinary ED: Reports none; Denies abdominal discomfort, anuria, dysuria, genital pain or polyuria Musculoskeletal Musculoskeletal: Reports none; Denies arthralgias, back pain, difficulty walking, extremity pain, muscle weakness or myalgias Integumentary Reports none; Denies abscess or rash Neurologic Neurologic: Reports none; Denies abnormal gait, confusion, focal weakness, frequent falls, headache(s), loss of vision, numbness, paresthesias, radicular pain, vertigo or weakness Psychiatric Psychiatric: Reports systems reviewed and no addt'l complaints, except as documented and none; Denies behavioral changes, confusion, difficulty concentrat ing, hallucinations, suicidal ideation, tactile hallucinations or visual hallucinations Endocrine Endocrinology: Denies none, cold intolerance, excessive sweating, fatigue or heat intolerance Hematologic/Lymphatic Hematologic/Lymphatic: Reports none; Denies anemia, easy bleeding or easy bruising Allergic/Immunologic Allergic/Immunologic ED: Denies as per HPI, none, lip swelling, mouth swelling, throat swelling, tongue swelling or hives EXAM Physical Exam Const Vital Signs: 08/25/21 13:40 08/25/21 13:49 Temperature 97.1 F L 97.1 F L Temperature Source Temporal Temporal Pulse Rate 90 90 Respiratory Rate 17 17 Blood Pressure 137/89 H 137/89 H Blood Pressure Mean 105 105 Pulse Ox 97 97 Oxygen Delivery Method Room Air Room Air Positive well nourished and well developed General Appearance ED: well developed and NAD HEENT Reports TM's clear and moist mucous membranes HEENT Narrative: No facial erythema or cellulitis noted. Evaluation of her dentition does reveal extraction of 4 molars. No gingival erythema or abscess formation noted. No trismus on exam. normocephalic and atraumatic; Negative for trauma or tenderness Tympanic Membrane ED: Yes TM's clear Eyes PERRL and EOMs intact bilaterally General Eye ED: Negative for pale conjunctiva or scleral icterus Neck no lymphadenopathy, supple and no JVD General: Negative for tenderness Chest Wall inspection of chest normal and palpation of chest normal Chest: Negative for tenderness Resp normal respiratory effort and clear to auscultation bilaterally Effort and Inspection: Negative for respiratory distress or pain with movement Auscultation: Negative for rhonchi, wheezes or diminished lung sounds Cardio regular rate, regular rhythm, S1 normal heart sound, S2 normal heart sound and no murmurs Peripheral Pulses: pulses 2+ throughout GI normal to inspection, nondistended, normoactive bowel sounds, soft to palpation, non-tender, non-distended and no masses Back/Spine no CVA tenderness and no thoracic nor lumbar tenderness Extremity normal to inspection General Extremety ED: Negative for edema General Extremity: Negative for edema Neuro oriented x3, CN's II-XII intact bilaterally, no sensory deficits noted and gait normal Sensorium / Orientation: awake, alert, oriented to person, oriented to place and oriented to time Motor Exam: strength 5/5 throughout and strength abnormal Psych mental status grossly normal Skin no rashes or lesions noted and no wounds MDM MDM MDM Narrative Medical decision making narrative: Patient was started on clindamycin and will be given a prescription for [place] for pain. Patient advised to follow-up with her dentist. Discharge Plan Triage Chief Complaint: Dental ED Provider: Edwar Zuniga Dx/Rx/DC Orders Clinical Impression: Pain, dental Instructions: ED Dental Pain Prescriptions: New clindamycin HCl [Cleocin HCl] 300 MG capsule 300 mg PO Q6H Qty: 40 RF: 0 hydrocodone-acetaminophen [hydrocodone-acetaminophen] 1 TABLET tablet 1 tab PO Q4H PRN PRN (Reason: Pain) 3 Days Qty: 15 RF: 0 No Action acetaminophen [Tylenol Extra Strength] 500 MG tablet 1,000 mg PO Q6H PRN PRN (Reason: HEADACHE) RF: 0 Primary Care Provider: Care Physician,No Primary Referrals: Care Physician,No Primary [Primary Care Provider] - Disposition Disposition: Home, Self Care
[2021-08-25] MEDS: Clindamycin HCl 150 MG Capsule 300 MG PO (14:06)
== END 2021-08-25 14:09 | disposition home or self-care (01) ==
LOC: ED 14:04
PROVIDERS: Emergency Provider Emergency Medicine; Visit Provider Emergency Medicine
DX: K08.89 Other specified disorders of teeth and supporting structures (principal); R68.84 Jaw pain; Z98.818 Other dental procedure status
CPT/HCPCS: 99283

== ENCOUNTER 2023-09-14 15:57 | Emergency (ER) | payer MEDICAID, SELFPAY ==
[2023-09-14 15:58] VITALS: BP 131/86; PULSE 120; RESP 16; TEMP 35.9; O2SAT 99
--- NOTE | 2023-09-14 16:26 | VDUE_ITS ---
Reason For Study: Left arm swelling Left Proximal Left jugular vein is spontaneous, widely patent, phasic, with no intraluminal echogenicity noted. Left subclavian vein is spontaneous, widely patent, phasic, with no intraluminal echogenicity noted. Left Arm Left axillary vein is spontaneous, patent, phasic, competent, compressible and demonstrates augmentation. Left brachial vein is compressible. Acute superficial vein thrombosis is noted in the left Cephalic vein from prox-distal forearm. Left basilic vein is compressible. Left Lower Arm Left radial vein is compressible. Left ulnar vein is compressible. Patient Safety Preliminary report given to ED Triage. VL/Venous Duplex US, Unilateral Interpretation Summary No evidence for acute deep venous thrombosis[left] upper extremity with patent and compressible cephalic and basilic veins. Superficial thrombophlebitis left cephalic vein fro m the proximal to distal forearm Ordering Physician: Gala Bruner Performed By: Josselin Paulino RVT ???
--- NOTE | 2023-09-14 17:42 | EDS_ITS ---
HPI History of Present Illness Chief Complaint: Wound Check Informant: patient Onset/Context/Timing Onset: Today Narrative Narrative: Patient presents secondary left arm pain and swelling. Patient had gastric bypass surgery performed at [facility] on September 09. She came home from the hospital the evening of the . Today she noted redness and pain to her volar left forearm. She outlined the area. The area of redness seems to be getting smaller, however she states the red is getting brighter. She is right-hand dominant. She did have IVs in both hands at the time of her surgery. [facility] Medical History (Updated 09/14/23 @ 17:[address] Kacey Cunningham MD) 37 weeks gestation of Maternal fever during labor, antepartum Home Medications acetaminophen 500 mg tablet (Tylenol Extra Strength) 1,000 mg PO Q6H PRN PRN HEADACHE 04/05/17 [History Last Taken 04/05/17 17:45] clindamycin HCl 300 mg capsule (Cleocin HCl) 300 mg PO Q6H #40 CAPSULES 08/25/21 [Rx Last Taken Unknown] hydrocodone-acetaminophen 5-325mg 5mg-325mg 1 tab PO Q4H PRN PRN Pain 3 days #15 TABLETS 08/25/21 [Rx Last Taken Unknown] Allergy/AdvReac Type Severity Reaction Status Date / Time amoxicillin Allergy Hives Verified 09/14/23 15:58 shellfish derived Allergy Hives Verified 09/14/23 15:58 Surgical History History of gastric bypass Tubal ligation status Social History Smoking Status: Never smoker ROS ROS ED Constitutional Constitutional ED: Denies chills or fever(s) Eyes Eyes: Denies discharge from eye(s) ENT ENT ED: Denies discharge from eye(s), rhinorrhea or sore throat Cardiovascular Cardiovascular: Denies chest pain or palpitations Respiratory/Chest Respiratory/Chest: Denies cough or dyspnea Gastrointestinal Gastrointestinal: Denies nausea or vomiting Genitourinary Genitourinary ED: Denies dysuria Musculoskeletal Musculoskeletal: Reports extremity pain; Denies back pain Integumentary Reports rash; Denies Abrasions Neurologic Neurologic: Denies headache(s) or weakness Psychiatric Psychiatric: Denies anxiety or depression Allergic/Immunologic Allergic/Immunologic ED: Denies lip swelling or urticaria EXAM Physical Exam Const Vital Signs: 09/14/23 15:58 Temperature 96.6 F L Temperature Source Temporal Pulse Rate 120 H Respiratory Rate 16 Blood Pressure 131/86 H Blood Pressure Mean 101 Pulse Ox 99 Oxygen Delivery Method Room Air Positive well nourished and well developed General Appearance ED: well developed HEENT Reports moist mucous membranes Eyes EOMs intact bilaterally Chest Wall inspection of chest normal and palpation of chest normal Resp normal respiratory effort and clear to auscultation bilaterally Cardio regular rate and regular rhythm GI GI Narrative: Abdomen soft. Appropriate postoperative tenderness noted. Surgical incisions are clean with no sign of infection. Extremity Extremity Narrative: Area of erythema over the volar forearm measuring approximately 6 x 9 cm. Area warm to the touch. Full range of motion of the joint without difficulty. Good cap refill and sensation. Neuro oriented x3 MDM MDM MDM Narrative Medical decision making narrative: Venous ultrasound of the left upper extremity was obtained prior to my initial evaluation. She does have evidence of acute superficial vein thrombosis at the left cephalic vein from proximal to distal forearm. Test results are discussed with her. She has a superficial clot in the upper extremity and does not require anticoagulation. She is not to take aspirin given her recent gastric bypass surgery. We discussed using warm compresses and elevating her arm. She will try topical Voltaren cream. She is to call her surgeon tomorrow with an update. Return instructions provided. Discharge Plan Triage Chief Complaint: Wound Check ED Provider: Kacey Cunningham Dx/Rx/DC Orders Clinical Impression: Superficial thrombophlebitis Instructions: ED Thrombophlebitis, Superficial Prescriptions: No Action acetaminophen [Tylenol Extra Strength] 500 MG tablet 1,000 mg PO Q6H PRN PRN (Reason: HEADACHE) clindamycin HCl [Cleocin HCl] 300 MG capsule 300 mg PO Q6H Qty: 40 0RF hydrocodone-acetaminophen [hydrocodone-acetaminophen] 1 TABLET tablet 1 tab PO Q4H PRN PRN (Reason: Pain) 3 Days Qty: 15 0RF Primary Care Provider: Care Physician,No Primary Referrals: Care Physician,No Primary [Primary Care Provider] - Activity Restrictions/Additional Instructions: As discussed, please call your surgery office tomorrow with an update. You have an acute superficial vein thrombosis in the left cephalic vein. Please elevate and use warm compresses to your arm. You can try topical Voltaren cream. Disposition Disposition: Home, Self Care
[2023-09-14 18:09] VITALS: BP 131/86; PULSE 120; RESP 16; TEMP 35.9; O2SAT 99
== END 2023-09-14 18:10 | disposition home or self-care (01) ==
LOC: ED 17:54
PROVIDERS: Emergency Provider Emergency Medicine; Visit Provider Emergency Medicine
DX: I82.612 Acute embolism and thrombosis of superficial veins of left upper extremity (principal); Z98.84 Bariatric surgery status
CPT/HCPCS: 93971; 99282

== ENCOUNTER 2023-09-16 14:07 | Emergency (ER) | payer MEDICAID, SELFPAY ==
[2023-09-16 14:08] VITALS: BP 134/84; PULSE 134; RESP 20; TEMP 36.1; O2SAT 99; BMI 41.9
--- NOTE | 2023-09-16 14:51 | VDUE_ITS ---
Reason For Study: Left arm pain Left Proximal Left jugular vein is spontaneous, widely patent, phasic, with no intraluminal echogenicity noted. Left subclavian vein is spontaneous, widely patent, phasic, with no intraluminal echogenicity noted. Left Arm Left axillary vein is spontaneous, patent, phasic, competent, compressible and demonstrates augmentation. Left brachial vein is compressible. Acute superficial vein thrombosis is noted in the left Cephalic vein from prox-distal forearm. Left basilic vein is compressible. Left Lower Arm Left radial vein is compressible. Left ulnar vein is compressible. Patient Safety Preliminary report given to Dr. Cunningham. Compared to 09/14/23. VL/Venous Duplex US, Unilateral Interpretation Summary Acute superficial vein thrombosis noted in the left cephalic vein. Deep veins of the left upper extremity are patent and compressible segmentally. There is no evidence of deep vein thrombosis. Ordering Physician: Kacey Cunningham Performed By: Josselin Paulino RVT ???
--- NOTE | 2023-09-16 14:51 | CT_ITS ---
EXAM: CT ANGIOGRAPHY CHEST WITHOUT AND WITH INTRAVENOUS CONTRAST CLINICAL INDICATION: LUE clot, pain TECHNIQUE: Helically acquired angiography images were obtained of the chest without and with intravenous contrast. This CT exam was performed using one or more of the following dose reduction techniques: automated exposure control, adjustment of the mA and/or kV according to patient size, and/or use of iterative reconstruction technique. MIP reconstructed images were created and reviewed. CONTRAST: IV 100mL [id number] COMPARISON: No relevant prior studies available. FINDINGS: PULMONARY ARTERIES: Unremarkable. Normal in caliber. No evidence of pulmonary embolism. AORTA: Unremarkable. Normal in caliber. No evidence of dissection. GREAT VESSELS OF AORTIC ARCH: Unremarkable. Normal in caliber. No evidence of dissection. LUNGS AND PLEURAL SPACES: Calcified granuloma in the left upper lobe. There are small bilateral pleural effusions. No mass. No pneumothorax. HEART: Unremarkable. Heart size is normal. No pericardial effusion. No significant coronary artery calcifications. MEDIASTINUM: Unremarkable. No mediastinal or hilar adenopathy. Esophagus is unremarkable. No hiatal hernia. THYROID: Unremarkable. No thyroid lesions. BONES/JOINTS: Unremarkable. No suspicious lytic or blastic abnormality. CT/CTA Chest W/WO Contrast IMPRESSION: 1. No evidence of pulmonary embolus. 2. Small bilateral pleural effusions with minimal bibasilar atelectasis. Electronically Signed: Fede Ocampo MD at 16:38 EST ,
--- NOTE | 2023-09-16 14:52 | EKG12_ITS ---
Test Reason : Blood Pressure : / mmHG Vent. Rate : 117 BPM Atrial Rate : 117 BPM P-R Int : 132 ms QRS Dur : 072 ms QT Int : 340 ms P-R-T Axes : 043 022 028 degrees QTc Int : 474 ms Sinus tachycardia T wave abnormality, consider anterior ischemia Abnormal ECG Confirmed by GRISELDA BRAND, CRISTINO ([id number]), subeditor KAVITHA BOUDREAUX ([id number]) on 09/21/2023 9:32:52 AM Referred By: Confirmed By:TACOS VILLALOBOS MD
[2023-09-16 14:59] VITALS: PULSE 118; RESP 26; O2SAT 96
[2023-09-16] MEDS: DiphenhydrAMINE 50 MG/ML Syringe IV (15:09)
[2023-09-16] MEDS: 0.9% Normal Saline (1000mL) 1,000 ML 999 ML IV (15:09)
--- NOTE | 2023-09-16 15:09 | EX.ED.UPPERE ---
HPI History of Present Illness Chief Complaint: Upper Extremity Injury Informant: patient Narrative Narrative: Patient returns to the ER secondary to continued left arm pain. She was seen by myself in the ER a few days ago with superficial thrombophlebitis to the left forearm. She had gastric bypass surgery at [facility] on September 09 and had IVs placed in both hands. She states that she now has pain going up to her shoulder and her surgeons office wanted her to come in to have a CT scan to rule out a pulmonary embolism. [facility] Medical History (Updated 09/16/23 @ 17:[address] Kacey Cunningham MD) 37 weeks gestation of Maternal fever during labor, antepartum Superficial thrombophlebitis Home Medications acetaminophen 500 mg tablet (Tylenol Extra Strength) 1,000 mg PO Q6H PRN PRN HEADACHE 04/05/17 [History Last Taken 04/05/17 17:45] clindamycin HCl 300 mg capsule (Cleocin HCl) 300 mg PO Q6H #40 CAPSULES 08/25/21 [Rx Last Taken Unknown] hydrocodone-acetaminophen 5-325mg 5mg-325mg 1 tab PO Q4H PRN PRN Pain 3 days #15 TABLETS 08/25/21 [Rx Last Taken Unknown] Allergy/AdvReac Type Severity Reaction Status Date / Time amoxicillin Allergy Hives Verified 09/16/23 14:10 shellfish derived Allergy Hives Verified 09/16/23 14:10 Surgical History History of gastric bypass Tubal ligation status Social History household members: spouse and children housing: house Smoking Status: Never smoker ROS ROS ED Constitutional Constitutional ED: Denies chills or fever(s) Eyes Eyes: Denies discharge from eye(s) ENT ENT ED: Denies discharge from eye(s), rhinorrhea or sore throat Cardiovascular Cardiovascular: Denies chest pain or palpitations Respiratory/Chest Respiratory/Chest: Reports dyspnea; Denies cough Gastrointestinal Gastrointestinal: Denies abdominal pain, diarrhea, nausea or vomiting Genitourinary Genitourinary ED: Denies dysuria Musculoskeletal Musculoskeletal: Reports extremity pain; Denies back pain Integumentary Reports rash; Denies Abrasions Neurologic Neurologic: Denies headache(s) or weakness Psychiatric Psychiatric: Denies anxiety or depression Allergic/Immunologic Allergic/Immunologic ED: Denies lip swelling or urticaria EXAM Physical Exam Const Vital Signs: 09/16/23 14:08 09/16/23 14:59 Temperature 97 F L Temperature Source Temporal Pulse Rate 134 H 118 H Respiratory Rate 20 H 26 H Blood Pressure 134/84 H Blood Pressure Mean 100 Pulse Ox 99 96 Oxygen Delivery Method Room Air Positive well nourished and well developed General Appearance ED: well developed HEENT Reports moist mucous membranes Chest Wall inspection of chest normal and palpation of chest normal Resp normal respiratory effort and clear to auscultation bilaterally Cardio regular rhythm Rate: tachycardic GI non-tender Palpation: soft Extremity Extremity Narrative: Left upper extremity semination reveals mild erythema over the forearm. This is changed compared to a few days ago and is a focal erythema over the volar aspect. No significant edema appreciated. Good range of motion of the joints. Neuro oriented x3 and moves all extremities Motor Exam: strength 5/5 throughout Psych mental status grossly normal MDM MDM MDM Narrative Medical decision making narrative: Patient placed on awake overnight monitor. IV fluids initiated. Labwork obtained to evaluate for leukocytosis, anemia, and electrolyte derangement. EKG obtained to evaluate for cardiac arrhythmia/ischemia. Patient reports hives with shellfish. She tells me she has never had IV contrast before. She also reports developing a rash after her surgery from the surgical scrub. She does not know if this was from the iodine based scrub. We will premedicate her to be cautious with methylprednisolone and diphenhydramine. Lab Data Labs: Impressions Chest CTA 09/16/23 14:51 IMPRESSION: 1. No evidence of pulmonary embolus. 2. Small bilateral pleural effusions with minimal bibasilar atelectasis. Electronically Signed: Fede Ocampo MD at 16:38 EST , 09/16/23 14:51 CTA Chest W/WO Contrast [CT] Stat Laboratory Results 09/16/23 15:01 WBC 13.1 H RBC 4.81 Hgb 15.3 H Hct 44.3 MCV 92.1 MCH 31.8 MCHC 34.5 RDW Std Deviation 39.6 RDW Coeff of Juan 11.7 Plt Count 233 MPV 10.3 Immature Gran % (Auto) 0.500 Neut % (Auto) 77.5 H Lymph % (Auto) 9.7 L [place] % (Auto) 11.3 H Eos % (Auto) 0.8 Baso % (Auto) 0.2 Absolute Neuts (auto) 10.2 H Absolute Lymphs (auto) 1.28 Nucleated RBC % 0 Sodium 135 L Potassium 3.9 Chloride 104 Carbon Dioxide 19.0 L Anion Gap 12 BUN 10 Creatinine 0.73 Estim Creat Clear Calc 132.11 Est GFR (MDRD) Af Amer 125 Est GFR (MDRD) Non-Af 103 BUN/Creatinine Ratio 13.8 Glucose 98 Calcium 9.5 Treatment and Re-Evaluation Narrative: CBC was a white count of 13.1 with 77% neutrophils. Hemoglobin slightly concentrated at 15.3. Chemistry studies reveal slightly low bicarb at 19. Renal function is normal. CTA of the chest reveals no evidence of PE. Small bilateral pleural effusions noted. Venous ultrasound of the left upper extremity reveals stable superficial thrombophlebitis or slightly improved when compared to prior study. EKG is sinus tach at 117. She does have anterior T wave inversion but no ST change. Test results discussed with the patient. She does feel improved at this time. She will follow-up with her surgeon as scheduled. Discharge Plan Triage Chief Complaint: Upper Extremity Injury ED Provider: Kacey Cunningham Dx/Rx/DC Orders Clinical Impression: Superficial thrombophlebitis Instructions: ED Thrombophlebitis, Superficial Prescriptions: No Action acetaminophen [Tylenol Extra Strength] 500 MG tablet 1,000 mg PO Q6H PRN PRN (Reason: HEADACHE) clindamycin HCl [Cleocin HCl] 300 MG capsule 300 mg PO Q6H Qty: 40 0RF hydrocodone-acetaminophen [hydrocodone-acetaminophen] 1 TABLET tablet 1 tab PO Q4H PRN PRN (Reason: Pain) 3 Days Qty: 15 0RF Primary Care Provider: Care Physician,No Primary Referrals: Care Physician,No Primary [Primary Care Provider] - Activity Restrictions/Additional Instructions: Follow-up with your surgeon as scheduled. Disposition Disposition: Home, Self Care
[2023-09-16 15:12] LABS: Absolute Lymphocyte Count 1.28 X10^3/uL (0.83-4.51); Absolute Neutrophil Count 10.2 X10^3/uL (2.0-7.7); Basophil# 0.03 X10^3/uL; Basophil% 0.2 % (0-1); Eosinophil# 0.11 X10^3/uL; Eosinophils% 0.8 % (0-5); Hematocrit 44.3 % (37-47); Hemoglobin 15.3 g/dL (12.0-15.0); Lymphocyte # 1.28 X10^3/ul (0.83-4.51); Lymphocyte % 9.7 % (19-41); Mean Corp Hgb Conc 34.5 g/dL (32-36); Mean Corpuscular Hgb 31.8 pg (27.0-32.0); Mean Corpuscular Volume 92.1 fL (81-99); Mean Platelet Vol. 10.3 fl (6.2-12.0); Monocyte# 1.48 X10^3/uL; Monocyte% 11.3 % (0-10); NRBC Flagged by Analyzer 0 % (0-5); Neutrophil # 10.18 X10^3/uL (2.7-7.7); Neutrophil % 77.5 % (47-70); Platelet Count 233 K/mm3 (150-450); RBC Distribution Width CV 11.7 % (11.6-14.6); RBC Distribution Width SD 39.6 fl (35.1-43.9); Red Blood Count 4.81 M/mm3 (4.2-5.4); White Blood Count 13.1 K/mm3 (4.4-11.0)
[2023-09-16 15:28] LABS: Anion Gap 12 (5-15); BUN 10 mg/dL (7-18); BUN/Creat Ratio 13.8 RATIO (10-20); Calcium,Total 9.5 mg/dL (8.5-10.1); Chloride 104 mmol/L (98-107); Creatinine, Serum 0.73 mg/dL (0.55-1.02); EST Glomerular Filtration Rate 103 mL/min (>60); Est Glom Filt Rate - Afr Amer 125 mL/min (>60); Estimated Creatinine Clearance 132.11 ml/min; Glucose 98 mg/dL (74-106); Potassium 3.9 mmol/L (3.5-5.1); Sodium Level 135 mmol/L (136-145)
[2023-09-16 17:29] VITALS: BP 110/75; PULSE 85; RESP 16; TEMP 36.6; O2SAT 98
== END 2023-09-16 17:29 | disposition home or self-care (01) ==
PROVIDERS: Emergency Provider Emergency Medicine; Visit Provider Emergency Medicine
DX: I82.612 Acute embolism and thrombosis of superficial veins of left upper extremity (principal); Z98.84 Bariatric surgery status
CPT/HCPCS: 71275; 80048; 85025; 93005; 93971; 96361; 96374; 96375; 99284; J7030; Q9967; A4216

== ENCOUNTER 2024-12-19 17:58 | Emergency (ER) | payer MEDICAID, SELFPAY ==
[2024-12-19 17:59] VITALS: BP 100/77; PULSE 74; RESP 19; TEMP 36.7; O2SAT 98; BMI 27.1
[2024-12-19 18:41] LABS: Absolute Lymphocyte Count 2.65 X10^3/uL (0.83-4.51); Absolute Neutrophil Count 6.3 X10^3/uL (2.0-7.7); Basophil# 0.04 X10^3/uL; Basophil% 0.4 % (0-1); Eosinophil# 0.17 X10^3/uL; Eosinophils% 1.7 % (0-5); Hemoglobin 15.6 g/dL (12.0-15.0); Lymphocyte # 2.65 X10^3/ul (0.83-4.51); Lymphocyte % 26.7 % (19-41); Mean Corp Hgb Conc 33.2 g/dL (32-36); Mean Corpuscular Hgb 31.6 pg (27.0-32.0); Mean Corpuscular Volume 95.1 fL (81-99); Mean Platelet Vol. 10.1 fl (6.2-12.0); Monocyte# 0.73 X10^3/uL; Monocyte% 7.4 % (0-10); NRBC Flagged by Analyzer 0 % (0-5); Neutrophil # 6.32 X10^3/uL (2.7-7.7); Neutrophil % 63.6 % (47-70); Platelet Count 228 K/mm3 (150-450); RBC Distribution Width CV 11.6 % (11.6-14.6); Red Blood Count 4.94 M/mm3 (4.2-5.4); White Blood Count 9.9 K/mm3 (4.4-11.0)
[2024-12-19 19:03] LABS: Internal QC Validated? YES +Cl - CLEAR BKGD; Pregnancy, Serum, hCG Quali. NEGATIVE Negative
[2024-12-19 19:35] LABS: ALB/GLOB Ratio 1.6 RATIO (0.9-2.4); AST(SGOT) 69 U/L (<=31); Alanine Aminotransfer ALT/SGPT 45 U/L (<=34); Albumin, Serum 4.6 g/dL (3.5-5.0); Alkaline Phosphatase 96 U/L (35-104); Anion Gap 12 (5-15); BUN 10 mg/dL (4-19); BUN/Creat Ratio 14.2 RATIO (10-20); Calcium,Total 10.4 mg/dL (7.6-11.0); Carbon Dioxide 25.7 mmol/L (21.0-32.0); Chloride 102 mmol/L (98-108); Creatinine, Serum 0.68 mg/dL (0.70-1.20); EST Glomerular Filtration Rate 123 (>60); Estimated Creatinine Clearance 111.79 ml/min (50-250); Globulin 2.9 g/dL (2.2-4.2); Glucose 94 mg/dL (70-99); Lipase 28 U/L (13-75); Potassium 4.4 mmol/L (3.3-5.1); Protein, Total 7.6 g/dL (5.9-8.4); Sodium Level 139 mmol/L (133-145)
[2024-12-19 20:21] VITALS: BP 110/76; PULSE 62; RESP 18; O2SAT 99
--- NOTE | 2024-12-19 22:05 | EX.ED.DYSGE1 ---
HPI History of Present Illness Chief Complaint: Abd Pain [facility] Medical History (Updated 09/24/23 @ 00:02 by Background Juve) Superficial thrombophlebitis Maternal fever during labor, antepartum 37 weeks gestation of Home Medications ?Medication ?Instructions ?Recorded ?Last Taken ?Type ondansetron 4 mg disintegrating 4 mg PO Q8H PRN PRN Nausea #10 tabs 12/19/24 Unknown Rx tablet pantoprazole 20 mg tablet,delayed 20 mg PO DAILY #30 tabs 12/19/24 Unknown Rx release (Protonix) Allergy/AdvReac Type Severity Reaction Status Date / Time amoxicillin Allergy Hives Verified 12/19/24 18:01 shellfish derived Allergy Hives Verified 12/19/24 18:01 Surgical History History of gastric bypass Tubal ligation status Social History household members: spouse and children housing: house Smoking Status: Current some day smoker tobacco type: cigarettes EXAM Physical Exam Const Vital Signs: 12/19/24 17:59 12/19/24 20:21 12/19/24 22:20 Temperature 98.1 F Temperature Source Oral Pulse Rate 74 62 84 Respiratory Rate 19 H 18 16 Blood Pressure 100/77 110/76 Blood Pressure Mean 84 87 Pulse Ox 98 99 98 Oxygen Delivery Method Room Air MDM MDM MDM Narrative Medical decision making narrative: HISTORY OF PRESENT ILLNESS: Chief complaint: Abdominal pain 29-year-old female presents abdominal pain. History of bypass surgery. Notes she sent in by urgent care. She further stated she felt transient abdominal pain. She denies associated diarrhea. Noted 1 episode of nonbloody nonbilious vomitus. No symptoms since resolved. She has been waiting for approximately 4 hours in the ED notes she has no more abdominal pain no nausea. REVIEW OF SYSTEMS: Pertinent positives: Abdominal pain, nausea vomit Pertinent negatives: Melena, hematochezia, chest pain, shortness of breath PHYSICAL EXAM: Nursing triage notes reviewed, Vital signs reviewed Constitutional: please see mdm HENT: MMM Eyes: Pupils equal round and reactive to light, Extraocular muscles intact Neck: No stridor, no JVD, full neck ROM Lungs: Clear to auscultation, No wheezing or rales. No increased work of breathing, no conversational dyspnea, no accessory muscle use, no nasal flaring. No respiratory distress noted Heart: Regular rate and rhythm, No murmurs, No rubs and No gallops, 2+ distal pulses (radial, femoral, posterior tibial) in all extremities Abdomen: Soft, there is no tenderness, rigidity, rebound or guarding, no obvious peritoneal signs, no palpable pulsatile abdominal masses, no auscultated abdominal bruit : No CVAT Extremities: No edema Neuro: No new focal neurological deficits, cranial nerves II through XII intact, 5/5 strength in all present extremities. Intact sensation to light touch in all present extremities, 2+ reflexes bilateral patella tendons. Skin: No rash or lesions noted MEDICAL DECISION MAKING: Chief Complaint: please see HPI External records reviewed: Reviewed prior imaging studies Factors affecting care: history of gastric bypass, tubal ligation Social determinants of health: denies alcohol History obtained from others: none Consults: none MDM Narrative: The patient was initially hemodynamically stable, afebrile and nontoxic-appearing. She remained this way over for prolonged ED observation. Patient was in the ED for approximate 4 hours prior to my evaluation. Exam completely benign. The patient no tenderness. She is asymptomatic. I considered the following differential diagnosis: AAA, small bowel obstruction, abdominal perforation, appendicitis, pancreatitis, hepatobiliary pathology (acute cholecystitis), mesenteric ischemia, pathology (ie nephrolithiasis, pyelonephritis). Triage labs replace per nursing protocol including CBC, , CMP and lipase ALL IMAGES (IF OBTAINED) HAVE BEEN PERSONALLY REVIEWED AND INTERPRETED BY MYSELF. CBC with no leukocytosis, no anemia, no thrombocytopenia CMP without evidence of acute kidney injury, significant electrolyte abnormality, anion gap to suggest end organ hypo-perfusion, no evidence of metabolic acidosis with a normal bicarbonate, no evidence of hepatobiliary obstructive pathology. Urine test is negative Lipase is wnl indicating no pancreatic inflammation. Repeat abdominal exam remained benign. I see nothing that would suggest an acute abdomen at this time. Based on history physical exam, risk factors, I have a low for acute surgical abdominal pathology, is very low. There is no evidence of peritonitis sepsis or toxicity at this time. I feel the patient can be managed as an outpatient with follow-up with her primary physician in the next 24 to 48 hours or soon as possible. Instructions have been given for the patient to return to the ED for worsening pain, anorexia, high fevers, intractable vomiting or bleeding. Undertook a shared decision-making discussion with the patient. Discussed her elevated risk of intra-abdominal otology given history of gastric bypass. Discussed obtaining a CT scan. Patient was alert and orient x 3 and displayed capacity make own medical decisions chose to forego CT at this time as she felt better and felt she could follow-up. She also knows she return symptoms change or worsen. The patient and/or family, caregivers express understanding. The patient and/or family, caregivers agrees with the plan. Shared decision making: I will have a discussion with the patient and or visitors regarding risk/benefits of further testing or admission. They will be made aware of of the risk/benefits inherent in this decision they will be given the opportunity to voice understanding. Total critical care time today provided was at least 0 minutes. This excludes separately billable procedures. Critical care time (if documented) is secondary to the patient having high probability of clinically significant/life threatening deterioration in the patient's condition which required my urgent intervention. Impression: 1. Abdominal pain 2. History of gastric bypass Dispo: Discharge This note was generated with [employer] dictation software. It may contain incorrect words, spelling, and punctuation that were not noted in review of the chart prior to signing. Lab Data Labs: Laboratory Results - last 24 hr 12/19/24 18:30 WBC 9.9 RBC 4.94 Hgb 15.6 H Hct 47.0 MCV 95.1 MCH 31.6 MCHC 33.2 RDW Std Deviation 40.0 RDW Coeff of Juan 11.6 Plt Count 228 MPV 10.1 Immature Gran % (Auto) 0.200 Neut % (Auto) 63.6 Lymph % (Auto) 26.7 [place] % (Auto) 7.4 Eos % (Auto) 1.7 Baso % (Auto) 0.4 Absolute Neuts (auto) 6.3 Absolute Lymphs (auto) 2.65 Nucleated RBC % 0 Sodium 139 Potassium 4.4 Chloride 102 Carbon Dioxide 25.7 Anion Gap 12 BUN 10 Creatinine 0.68 L Estim Creat Clear Calc 111.79 Est GFR (MDRD) Non-Af 123 BUN/Creatinine Ratio 14.2 Glucose 94 Calcium 10.4 Total Bilirubin 0.60 AST 69 H ALT 45 H Alkaline Phosphatase 96 Total Protein 7.6 Albumin 4.6 Globulin 2.9 Albumin/Globulin Ratio 1.6 Lipase 28 Serum , Qual NEGATIVE Discharge Plan Triage Chief Complaint: Abd Pain ED Provider: Tristan Castaneda Dx/Rx/DC Orders Instructions: ED Abdominal Pain Unkn Cause Fem Prescriptions: New pantoprazole [Protonix] 20 mg tablet,delayed release (DR/EC) 20 mg PO DAILY Qty: 30 0RF ondansetron 4 mg tablet,disintegrating 4 mg PO Q8H PRN PRN (Reason: Nausea) Qty: 10 0RF Primary Care Provider: Care Physician,No Primary Referrals: Tj Griffin MD [Med Staff - Network Associate] - Friend,DO Tucker [Med Staff - Active Staff] - Activity Restrictions/Additional Instructions: Thank you for trusting us with your care today! Please take Tylenol (2 pills, 650 mg), ibuprofen (2 pills, 400 mg) every 6 hours as needed for pain and fever control. Please start taking Protonix daily. This is been prescribed Please start taking Zofran as needed for nausea and vomiting control Please return to the emergency department if your symptoms change or worsen. Please follow with your surgeon for further outpatient evaluation and management. Print Language: Vietnamese Disposition Disposition: Home, Self Care Discharge Date/Time: 12/19/24 22:46
[2024-12-19 22:20] VITALS: PULSE 84; RESP 16; O2SAT 98
== END 2024-12-19 22:46 | disposition home or self-care (01) ==
PROVIDERS: Emergency Provider Emergency Medicine; Visit Provider Emergency Medicine
DX: R10.9 Unspecified abdominal pain (principal); R11.10 Vomiting, unspecified; F17.210 Nicotine dependence, cigarettes, uncomplicated; Z98.84 Bariatric surgery status
CPT/HCPCS: 80053; 83690; 84703; 85025; 99282; A4216